=== PATIENT | male | born 1970 | race Caucasian/White ===

== ENCOUNTER 2017-08-08 03:37 | Emergency (ER) | payer OTHER, SELFPAY ==
[2017-08-08 03:38] VITALS: BP 139/94; PULSE 69; RESP 16; TEMP 36.7; O2SAT 97; BMI 31.8
[2017-08-08] MEDS: Naproxen 500 MG Tablet PO (03:58)
--- NOTE | 2017-08-08 04:01 | RAD_ITS ---
STUDY: X-RAY - PELVIS REASON FOR EXAM: Male, 46 years old. Pain after fall. TECHNIQUE: One view of the pelvis was obtained. COMPARISON: CT abdomen and pelvis March 13, 2016. FINDINGS: There is a non-specific bowel gas pattern. Normal visualized soft tissue structures. Normal bilateral iliac wings, sacroiliac joints and visualized sacrum. Normal visualized bilateral superior and inferior pubic rami. Normal pubic symphysis. Normal ischial tuberosities. Normal visualized right femoral head. Normal right acetabulum. Normal right hip joint. Normal visualized left femoral head. Normal left acetabulum. Normal left hip joint. RAD/Pelvis 1 or 2 Views IMPRESSION: Normal x-ray examination of the pelvis. Electronically Signed: Rock Etienne MD at 4:27 EST , Service support ,
--- NOTE | 2017-08-08 04:48 | ED.DCSUM_ITS ---
- ER Visit Summary Date of Service: 08/08/17 Chief Complaint: Fall History of Present Illness: The patient is a 46 M who was unloading a truck at [facility] when he stepped off of a lift with his left leg. He states his legs were stretched approximately 3 feet apart at an odd angle. He is complaining of pain to the left lower back. Physical Examination: Vital signs are unremarkable. Patient sitting upright in bed no acute distress. Heart is regular rate and rhythm. Lungs are clear. Abdomen is soft nontender. Back examination reveals no midline thoracic or lumbar tenderness. He does have reproduced with tenderness in the left lower lumbar paraspinals and over the left SI joint. Neuro exam reveals good strength and sensation throughout. He has strong and equal distal pulses. Test Results: Pelvis x-ray is unremarkable. Emergency Department Course and Treatment: Patient is given Naprosyn here for pain. He is given a prescription for the same. He will follow-up with [facility]. Treatment Plan: [] Disposition: Discharge Impression: Left lumbar paraspinal strain This note was generated with [employer] dictation software. It may contain incorrect words, spelling, and punctuation that were not noted in review of the chart prior to signing ED Disposition - Plan for ED Patient: Disposition: Home or Assisted Living Chief Complaint: Fall Instructions: ED Sprain Strain Lumbar Prescriptions: Naproxen [Naprosyn] 500 mg PO BID PRN #20 tablet Referrals: [facility] [GROUP OF PHYSICIANS] - 2 Days
--- NOTE | 2017-08-08 04:49 | DCINST.ED_ITS ---
ED Disposition - Plan for ED Patient: Disposition: Home or Assisted Living Chief Complaint: Fall Instructions: ED Sprain Strain Lumbar Prescriptions: Naproxen [Naprosyn] 500 mg PO BID PRN #20 tablet Referrals: Corporate,[facility], [place] [GROUP OF PHYSICIANS] - 2 Days
[2017-08-08 05:09] VITALS: BP 138/81; PULSE 73; RESP 16; O2SAT 97
== END 2017-08-08 05:10 | disposition home or self-care (01) ==
PROVIDERS: Emergency Provider Emergency Medicine; Family Provider Family Medicine; PCP Family Medicine
DX: S39.012A Strain of muscle, fascia and tendon of lower back, initial encounter (principal); W17.89XA Other fall from one level to another, initial encounter; Y93.89 Activity, other specified; Y92.812 Truck as the place of occurrence of the external cause; Y99.0 Civilian activity done for income or pay; M54.9 Dorsalgia, unspecified; G89.29 Other chronic pain; G47.33 Obstructive sleep apnea (adult) (pediatric); Z87.442 Personal history of urinary calculi
CPT/HCPCS: 72170; 99283

== ENCOUNTER 2018-02-17 02:39 | Emergency (ER) | payer OTHER, SELFPAY ==
[2018-02-17 02:40] VITALS: BP 139/80; PULSE 67; RESP 18; TEMP 36.8; O2SAT 97; BMI 35.4
--- NOTE | 2018-02-17 02:53 | ED.DCSUM_ITS ---
- ER Visit Summary Date of Service: 02/17/18 Chief Complaint: Neck pain History of Present Illness: The patient is a 47 M presenting with neck pain. Patient was at work. He states a box fell from behind him and hit the back of his head and neck. He had no loss of consciousness. No vomiting. He complains of neck pain. This occurred 1 hour prior to arrival. No other injuries. Physical Examination: Vitals are stable. Patient is afebrile. Alert no acute distress. HEENT exam is unremarkable. Neck is supple. left paraspinal cervical muscle tenderness Lungs are clear and equal bilaterally. Heart is regular rate and rhythm Extremities are unremarkable. Skin is warm and dry. No focal neurologic deficit. Remainder of exam is unremarkable. Emergency Department Course and Treatment: Cervical spine x-ray shows no acute fracture. Patient is advised to use NSAIDs for pain. Advised to follow-up with [facility]. Advised return to ED for worsening complaints. Disposition: Discharge home Impression: Neck strain This note was generated with [employer] dictation software. It may contain incorrect words, spelling, and punctuation that were not noted in review of the chart prior to signing ED Disposition - Plan for ED Patient: Chief Complaint: Other, Pain/Inj Referrals: Care Physician,No Primary [Primary Care Provider] -
--- NOTE | 2018-02-17 05:57 | ED.DEP ---
ED Disposition - Plan for ED Patient: Chief Complaint: Other, Pain/Inj Instructions: ED Neck Back Pain General Referrals: Care Physician,No Primary [Primary Care Provider] - Corporate,[facility] [GROUP OF PHYSICIANS] -
[2018-02-17 06:31] VITALS: RESP 16
== END 2018-02-17 06:31 | disposition home or self-care (01) ==
PROVIDERS: Emergency Provider Emergency Medicine; Family Provider Family Medicine
DX: S16.1XXA Strain of muscle, fascia and tendon at neck level, initial encounter (principal); W20.8XXA Other cause of strike by thrown, projected or falling object, initial encounter; Y93.9 Activity, unspecified; Y92.89 Other specified places as the place of occurrence of the external cause; Y99.0 Civilian activity done for income or pay
CPT/HCPCS: 72040; 99282

== ENCOUNTER 2018-05-16 15:15 | Emergency (ER) | payer BC, SELFPAY ==
[2018-05-16 15:16] VITALS: BP 140/77; PULSE 79; RESP 17; TEMP 36.7; O2SAT 96; BMI 32.5
[2018-05-16 15:21] VITALS: BP 135/78; PULSE 80; RESP 14; O2SAT 98
--- NOTE | 2018-05-16 15:31 | ED.DCSUM_ITS ---
- ER Visit Summary Date of Service: 05/16/18 Chief Complaint: Neck swelling History of Present Illness: The patient is a 47 M with upper respiratory symptoms for the past 2 weeks about 4 5 days developed a lump under his tongue. It is painful. He did have subjective fevers. No chest pain shortness of lianna ath. He has a dry cough. No posterior neck pain no headache. No vision changes. Pain is mild to moderate not associated with dysphasia or odynophagia Physical Examination: Not appear in acute distress. Moist mucous membranes, no obvious facial deformity. There is slight postnasal drip and upper airway congestion. Submandibular gland is enlarged swollen and painful. No C-spine tenderness supple neck. No lymphadenopathy Regular rate and rhythm without any obvious murmurs Clear lungs bilaterally speaking in full sentences without any obvious respiratory distress Abdomen soft and nontender no guarding or rebound Moves all extremities without any difficulty or pain. Skin does not show any obvious rashes or lesions, no trauma. Alert oriented ?3 with no gross focal deficit Emergency Department Course and Treatment: Patient had submandibular gland sialadenitis. I will refer to ENT as well as treat with antibiotics. I instructed him on the use of tart candy. Disposition: Discharge stable condition Impression: Sialoadenitis This note was generated with [employer] dictation software. It may contain incorrect words, spelling, and punctuation that were not noted in review of the chart prior to signing ED Disposition - Plan for ED Patient: Disposition: Home or Assisted Living Chief Complaint: Other, Pain/Inj Instructions: ED Submandibular Gland Infec Prescriptions: Amoxicillin/Potassium Clav [Augmentin 875-125 Tablet] 1 ea PO BID #20 tab Referrals: Care Physician,No Primary [Primary Care Provider] -
[2018-05-16 15:40] VITALS: BP 128/75; PULSE 85; RESP 14; O2SAT 98
== END 2018-05-16 15:42 | disposition home or self-care (01) ==
PROVIDERS: Emergency Provider Emergency Medicine
DX: K11.20 Sialoadenitis, unspecified (principal)
CPT/HCPCS: 99282

== ENCOUNTER 2019-09-25 09:22 | Emergency (ER) | payer OTHER, BC, SELFPAY ==
[2019-09-25 09:22] VITALS: BP 150/70; PULSE 75; RESP 18; TEMP 36.8; O2SAT 96; BMI 37.8
[2019-09-25] MEDS: Diphth,Pertuss(Acell),Tet Vac 0.5 ML Vial IM (09:47)
--- NOTE | 2019-09-25 10:01 | ED.DCSUM_ITS ---
History of Present Illness Informant: Patient Occurred: Today Mechanism/Context: Work Related Onset: Today Context: Sudden Onset Timing: Continuous Quality of Pain: Sharp Location: right index finger Current Severity: Severe Maximum Severity: Severe Worsened by: movement Relieved by: nothing Associated Symptoms: Negative for: Parasthesia, Weakness, Loss of Funtion Narrative: 49-year-old [id number] male presents to the emergency department with a laceration to his right index finger. It occurred at work just prior to arrival. He was not able to control the bleeding. He does not remember when his last tetanus immunization was. He states he was on a sharp piece of glass but there is no shattering of glass. No numbness tingling or weakness. He is not on blood thinners. He denies any other injuries. Tetanus Immunization: >10 years Prior similar symptoms: No Recent Illness/Hospitalization: No <Hasmukh Flores - Last Filed: 09/25/19 10:01> <Latrice Mckeon - Last Filed: 09/25/19 10:15> Chief Complaint: Laceration Past Medical History Prior records reviewed: Yes Past Medical History: - - Depression and anxiety Surgical History: no surgical history Lives: Alone Smoking Status: Never smoker Alcohol: Occasional Drugs: None <Hasmukh Flores - Last Filed: 09/25/19 10:01> <Latrice Mckeon - Last Filed: 09/25/19 10:15> - Allergies and Home Meds Allergies/Adverse Reactions: Allergies No Known Allergies Allergy (Verified 09/25/19 09:25) [facility]YS[facility]] - As soon as possible Review of Systems All systems negative except as indicated General: Denies: Chills, Fever, Malaise Eyes: Denies: Visual changes - bilaterally, Blurred Vision - bilaterally, Dipl opia ENT: Denies: Rhinorrhea, Sore throat Cardiovascular: Denies: Chest pain, Palpitations Respiratory: Denies: Dyspnea, Cough Gastrointestinal: Denies: Abdominal pain, Nausea, Vomiting Genitourinary: Denies: Dysuria, Hematuria, Frequency Musculoskeletal: Reports: Extremity Pain. Denies: Myalgias, Arthralgias, Swelling Skin: Reports: Wounds. Denies: Rash, Abscess, Abrasions Neurological: Denies: Headache, Weakness, Parasthesia, Numbness <Juan Floresony - Last Filed: 09/25/19 10:01> Physical Exam Vital Signs/Narrative: Vital Signs Temp Pulse Resp BP Pulse Ox 09/25/19 09:22 98.3 F 75 18 150/70 H 96 Inital Vital Signs reviewed: Yes Right Finger: - - 4 cm laceration finger pad right index finger with mild active bleeding. It is linear. It is superficial. It is not through and through. There is no nail injury. He is able to fully flex and extend actively at the MCP, PIP and DIP joints. He has normal capillary refill and sensation. There is no bony tenderness. General: Well nourished, Well developed Head: Normocephalic, Atraumatic Eyes: Perrl, EOMI ENT: No Trauma, Moist Mucous Membranes Neck: Nontender, Full ROM Cardiovascular: Regular rate, Regular rhythm Respiratory: No distress, CTA bilaterally, Chest nontender Abdomen: Soft, Nontender, Nondistended, Normal bowel sounds, No masses Back: Nontender Skin: Normal color, No rash, Trauma Neurological: Alert, Oriented x3 Psychological: Normal affect, Normal Mood <Hasmukh Flores - Last Filed: 09/25/19 10:01> Vital Signs/Narrative: Vital Signs Temp Pulse Resp BP Pulse Ox 09/25/19 09:22 98.3 F 75 18 150/70 H 96 <Latrice Mckeon - Last Filed: 09/25/19 10:15> Diagnostic/Tx/Re-eval - Medical Decision Making Patient's tetanus was updated. Under sterile conditions with Betadine prep lidocaine was used for a digital block right second finger. Patient's laceration was thoroughly irrigated with sterile saline via pressure wash syringe approximately 60 cc. It was explored. There is no foreign body or any evidence of arterial bleeding tendon or ligament injury. It was then approximated with simple sutures Ethilon #6?0. A total of 8 were placed. Patient tolerated the procedure well. Patient will be placed in a sterile dressing with antibiotic ointment. He will be given work restrictions as this was a work-related injury and a Worker's Compensation form was completed. He was given instructions on proper wound care and he was given signs of infection to monitor for. He was advised to follow-up for removal in 7 to 10 days with Worker's Comp. <Hasmukh Flores - Last Filed: 09/25/19 10:01> - Medical Decision Making Seen with Susana agree history patient has right index laceration occurred at work on exam he has about a 2 cm laceration to the pad of his right index finger neurovascular function is intact see the ED chart for full details <Latrice Mckeon - Last Filed: 09/25/19 10:15> Procedures - Lacerations No standard instances Length: 1.57 in Depth: Skin Shape: Linear Prep: Sterile Conditions, Betadine Laceration Repair: Lidocaine, Nerve block, Sutures, Wound explored Irrigated (ml): 60 Number of Sutures/Primrose: 8 Suture Information: Ethilon, Simple, 6-0 <Hasmukh Flores - Last Filed: 09/25/19 10:01> ED Disposition <Hasmukh Flores - Last Filed: 09/25/19 10:01> <Latrice Mckeon - Last Filed: 09/25/19 10:15> - Plan for ED Patient: Disposition: Home or Assisted Living Diagnosis: Laceration of right index finger w/o foreign body w/o damage to nail, Tetanus toxoid vaccination administered at current visit Instructions: LACERATION, Extrem (Suture, Staple or Tape) Referrals: [facility] [GROUP OF PHYSICIANS] - As soon as possible
[2019-09-25 10:59] VITALS: RESP 16
== END 2019-09-25 11:00 | disposition home or self-care (01) ==
PROVIDERS: Emergency Provider Physician Assistant Medical
DX: S61.210A Laceration without foreign body of right index finger without damage to nail, initial encounter (principal); W25.XXXA Contact with sharp glass, initial encounter; Y93.9 Activity, unspecified; Y92.9 Unspecified place or not applicable; Y99.0 Civilian activity done for income or pay
CPT/HCPCS: 12002; 90471; 90715; 99282

== ENCOUNTER 2020-07-18 11:25 | Emergency (ER) | payer OTHER, BC, SELFPAY ==
[2019-10-05 10:09] VITALS: BMI 37.8
[2020-07-18 11:26] VITALS: BP 148/82; PULSE 52; RESP 18; TEMP 36.6; O2SAT 98; BMI 33.9
--- NOTE | 2020-07-18 11:29 | ED.RN ---
sarah serna.. assistant casino shift manager [phone]
--- NOTE | 2020-07-18 11:37 | CT_ITS ---
STUDY: CT BRAIN WITHOUT CONTRAST REASON FOR EXAM: Male, 49 years old. HEAD INJURY, HIT HEAD YESTERDAY, NO LOC, DIZZY, LIGHTHEADED RADIATION DOSAGE (If Supplied By Facility): CTDIvol = ( 44.99 ) mGy, DLP = ( 846.73 ) mGycm TECHNIQUE: Transaxial CT imaging of the brain was performed without administration of intravenous contrast material. Individualized dose optimization techniques were used for this CT. COMPARISON: Comparison is made with prior study dated 11/21/2012. FINDINGS: Normal soft tissue structures. Normal calvarium. Normal size ventricles and extra-axial spaces for the patient''s age. Normal white matter tracts of the cerebral hemispheres. Normal basal ganglia and thalami. Normal brainstem. Normal cerebellum. There is no intracranial hemorrhage. There are no findings of an acute ischemic infarction. Mucosal thickening of the left maxillary sinus. CT/Brain/Head without Contrast IMPRESSION: No acute abnormality is seen. Electronically Signed: Romain Morel, at 12:26 EST , Service support ,
--- NOTE | 2020-07-18 11:38 | ED.DCSUM_ITS ---
- ER Visit Summary Date of Service: 07/18/20 Chief Complaint: [Head injury] History of Present Illness: The patient is a 49 M [presents to the emergency department today after sustaining a head injury while at work yesterday around 3 PM. Patient states that he bent over and hit a bolt was attached to a beam with his head. No loss of consciousness. Patient unsure of his last tetanus shot. Patient initially felt okay but today started having episodes of dizziness and nausea and just overall not feeling well. Planes of a mild headache. Patient denies neck pain.] Patient not currently anticoagulated. He has history of obstructive sleep apnea, vertigo, and seizure disorder. Physical Examination: [HEENT-PERRLA, EOMI. Cranial nerves II through XII grossly intact. TMs clear. Mucous membranes moist. No adenopathy. Patient has a healing 1 cm laceration over the frontal scalp that is well approximated without signs of infection. No bony depressions noted. No hemotympanum. Cardiovascular-regular rate and rhythm without murmur or ectopy Lungs-clear to auscultation, chest wall stable without crepitus or subcu emphysema Abdomen-normoactive bowel sounds, soft, nontender, no rebound or rigidity, no peritoneal signs. Neuro aayf-dyuczq-yqtv and heel sanchez testing within normal limits, negative Romberg, negative for drift, fundi benign Extremities-intact ?4, normal range of motion, normal pulses, atraumatic] Test Results: [CT scan of the brain without contrast obtained and was normal] Emergency Department Course and Treatment: [] Treatment Plan: [Patient vies to push fluids and use Tylenol for discomfort. Patient will be given off work for 2 days. Patient to follow-up with [facility] in 3 to 5 days.] Disposition: [Discharged home in stable condition] Impression: [Post head injury/concussion Scalp laceration-no repair necessary-1 cm] This note was generated with [employer] dictation software. It may contain incorrect words, spelling, and punctuation that were not noted in review of the chart prior to signing ED Disposition - Plan for ED Patient: Referrals: Care Physician,No Primary [Primary Care Provider] -
--- NOTE | 2020-07-18 12:35 | CM.ED ---
Social Work Consult: No PCP Met with patient in room. Introduced self and social science research assistant role. Patient agreeable to speak with this social science research assistant. Patient confirms to not have a PCP. Patient open to this social science research assistant providing patient with list of PCP's in the area. Patient has a commercial insurance. Patient states thanks, I need to get one set-up. This social science research assistant highlighting the value of having a PCP in the community. Patient denies any community needs or concerns currently. Patient denies any transportation issues/concerns. Micaela Pandya MSW, LAQUITA
--- NOTE | 2020-07-18 12:51 | ED.DEP ---
ED Disposition - Plan for ED Patient: Instructions: ED Concussion Referrals: Care Physician,No Primary [Primary Care Provider] - [facility] [GROUP OF PHYSICIANS] - 3-5 Days
[2020-07-18 13:06] VITALS: BP 129/74; PULSE 64; RESP 15; O2SAT 98
--- NOTE | 2020-07-18 13:07 | ED.RN ---
PT LEFT PRIOR TO RECEIVING HIS TETANUS SHOT.
== END 2020-07-18 13:08 | disposition home or self-care (01) ==
LOC: ED 11:57
PROVIDERS: Emergency Provider Emergency Medicine
DX: S06.0X0A Concussion without loss of consciousness, initial encounter (principal); S01.01XA Laceration without foreign body of scalp, initial encounter; W22.8XXA Striking against or struck by other objects, initial encounter; Y93.89 Activity, other specified; Y92.9 Unspecified place or not applicable; Y99.0 Civilian activity done for income or pay
CPT/HCPCS: 70450; 99282

== ENCOUNTER 2023-05-04 19:01 | Emergency (ER) | payer SELFPAY ==
[2023-05-04 19:02] VITALS: BP 188/100; PULSE 69; RESP 16; TEMP 36.1; O2SAT 98; BMI 37.7
[2023-05-04 19:23] LABS: Bacteria 0 SEEN /hpf (None Seen); Mucous, Urine 0 SEEN /hpf (<or=2+)
[2023-05-04 19:24] LABS: Absolute Lymphocyte Count 2.21 X10^3/uL (0.83-4.51); Absolute Neutrophil Count 5.2 X10^3/uL (2.0-7.7); Basophil# 0.09 X10^3/uL; Basophil% 1.1 % (0-1); Eosinophil# 0.17 X10^3/uL; Hematocrit 48.9 % (40-54); Hemoglobin 16.4 g/dL (13.0-16.5); Lymphocyte # 2.21 X10^3/ul (0.83-4.51); Lymphocyte % 26.1 % (19-41); Mean Corp Hgb Conc 33.5 g/dL (32-36); Mean Corpuscular Hgb 31.7 pg (27.0-32.0); Mean Corpuscular Volume 94.6 fL (80-94); Mean Platelet Vol. 10.4 fl (6.2-12.0); Monocyte# 0.74 X10^3/uL; Monocyte% 8.7 % (0-10); NRBC Flagged by Analyzer 0 % (0-5); Neutrophil # 5.24 X10^3/uL (2.7-7.7); Neutrophil % 61.7 % (47-70); Platelet Count 239 K/mm3 (150-450); RBC Distribution Width CV 12.6 % (11.6-14.6); RBC Distribution Width SD 44.1 fl (35.1-43.9); Red Blood Count 5.17 M/mm3 (4.6-6.2); White Blood Count 8.5 K/mm3 (4.4-11.0)
[2023-05-04 19:25] LABS: Color, Urine Yellow (Yellow); Glucose, Dipstick Normal (Normal); Ketone-Dipstick 5 mg/dl (Negative); Leukocyte Esterase-Dipstick 25 /ul (Negative); Nitrite-Dipstick Negative (Negative); Occult Blood-Urine 50 /ul (Negative); Protein-Dipstick 30 mg/dl (Negative); Urine Bilirubin Dipstick Negative (Negative); Urine Clarity Clear (Clear); Urine Urobilinogen Normal (Normal)
[2023-05-04 19:33] LABS: Red Blood Cells-Urine 0-5 SEEN /hpf (0-5); Squamous Epithelial Cells - UA 0-5 SEEN /hpf (0-5); White Blood Cells 0-5 SEEN /hpf (0-5)
[2023-05-04 19:42] LABS: ALB/GLOB Ratio 0.8 RATIO (0.9-2.4); AST(SGOT) 31 U/L (15-37); Alanine Aminotransfer ALT/SGPT 71 U/L (16-61); Albumin, Serum 3.7 g/dL (3.2-5.0); Alkaline Phosphatase 96 U/L (45-117); Anion Gap 6 (5-15); BUN 16 mg/dL (7-18); Calcium,Total 9.2 mg/dL (8.5-10.1); Chloride 107 mmol/L (98-107); Creatinine, Serum 1.33 mg/dL (0.70-1.30); EST Glomerular Filtration Rate 60 mL/min (>60); Est Glom Filt Rate - Afr Amer 72 mL/min (>60); Estimated Creatinine Clearance 71.31 ml/min; Globulin 4.4 g/dL (2.2-4.2); Glucose 132 mg/dL (74-106); Potassium 3.8 mmol/L (3.5-5.1); Protein, Total 8.1 g/dL (6.4-8.2); Sodium Level 138 mmol/L (136-145)
--- NOTE | 2023-05-04 21:30 | CT_ITS ---
EXAM: CT ABDOMEN AND PELVIS WITHOUT INTRAVENOUS CONTRAST CLINICAL INDICATION: left flank pain. Stone hx TECHNIQUE: Helically acquired images were obtained of the abdomen and pelvis without intravenous contrast. This CT exam was performed using one or more of the following dose reduction techniques: automated exposure control, adjustment of the mA and/or kV according to patient size, and/or use of iterative reconstruction technique. RADIATION DOSE: CTDIvol = 23.48 mGy, DLP = 1343.25 mGy-cm. COMPARISON: March 13 2016 enhanced exam. FINDINGS: LOWER THORAX: At least mild calcification in left coronary artery, not fully included. Normal heart size. Lung bases are clear. No significant pericardial effusion. ABDOMEN: LIVER: Unremarkable. Homogeneous. GALLBLADDER AND BILE DUCTS: Small hyperdense layer of presumed tiny stones in the gallbladder, the gallbladder is mildly underdistended. No intra- or extrahepatic biliary ductal dilation. PANCREAS: Unremarkable. No focal cystic mass. SPLEEN: Unremarkable. Normal size without focal cystic or solid mass. ADRENALS: Unremarkable. No nodules. KIDNEYS AND URETERS: Mild left hydroureteronephrosis to the level of a 4.7 mm x 4 mm x 5 mm stone in the left UVJ, expected to pass shortly. Additional tiny solitary 2 mm stone in the left kidney. Mid left ureter 7 mm, left renal pelvis 1.2 cm AP. Slight left perinephric soft tissue stranding, no significant perinephric fluid. Normal renal size and position. STOMACH AND BOWEL: Collapse of much of the mid to distal colon, this is a limited exam for screening. No stomach or bowel distention. No focal inflammatory change. PELVIS: APPENDIX: Normal appendix is seen on sagittal images. BLADDER: See below. REPRODUCTIVE: Prostatomegaly, at least 6.7 cm x 5.2 cm x 5.3 cm with impression on the bladder base. ABDOMEN and PELVIS: INTRAPERITONEAL SPACE: Unremarkable. No ascites or other fluid collection. No free air. BONES/JOINTS: Vacuum disc and spondylosis with disc space narrowing at L4-5 and milder changes at L3-4 and L5-S1. No evidence of a significant degree of spinal canal stenosis but at least mild neural foraminal stenosis at multiple levels. No suspicious lytic or blastic abnormality. SOFT TISSUES: Small fat-containing umbilical hernia. VASCULATURE: See above. LYMPH NODES: Unremarkable. No enlarged lymph nodes. CT/Abdomen/Pelvis without Cont IMPRESSION: 1. Mild left hydroureteronephrosis to the level of a stone in the left UVJ. 2. Left nephrolithiasis. 3. Cholelithiasis. No evidence of acute cholecystitis. 4. Prostatomegaly. 5. Collapse of much of the colon, this is a very limited exam for colonic screening for early neoplasm. 6. Degenerative spine changes. Small fat-containing umbilical hernia. 7. At least mild coronary artery calcification. Heart is not fully included. Electronically Signed: Rossy Schmitz MD at 23:48 EDT ,
--- NOTE | 2023-05-04 21:39 | EDS_ITS ---
HPI HPI - GI History of Present Illness Chief Complaint: Abd Pain Detail of Chief Complaint: Left flank pain around 6 PM. History of kidney stones. Informant: patient and family Abdominal Pain/Flank Pain Onset: Today and Hours Context: Sudden Onset Timing: Continuous Location: Left Flank Current Severity: Moderate Maximum Severity: Moderate Nausea/Vomiting/Emesis GI Symptom: Positive for Nausea and Vomiting Onset: Today Severity: Mild Diarrhea/Melena/Hematochezia GI Symptom: Negative for Diarrhea Associated Symptoms Associated Symptoms: Negative for Dysuria, Frequency, Hematuria or Urgency Narrative Narrative: 52-year-old male history of kidney stone presented left flank pain today rating to his left groin. Thinks it is a kidney stone. Denies dysuria hematuria. No fever. With the pain he had nausea and vomiting. He is always passed the stones. He is never needed a stent or surgery. Prior similar symptoms: Yes Recent Illness/Hospitalization: No PFSH PFSH Medical History Weight loss Home Medications NK 09/25/19 [History Last Taken Unknown] Allergy/AdvReac Type Severity Reaction Status Date / Time No Known Allergies Allergy Verified 05/04/23 19:02 Social History Smoking Status: Former smoker alcohol intake: current alcohol intake frequency: a few times a month Alcohol type: beer and wine ROS ROS ED ROS Narrative Left flank pain. Nausea vomiting. Review of Systems ROS Unobtainable: Denies due to encephalopathy Constitutional Constitutional ED: Denies chills or fever(s) ENT ENT ED: Denies ear pain Cardiovascular Cardiovascular: Denies chest pain Respiratory/Chest Respiratory/Chest: Denies cough or dyspnea Gastrointestinal Gastrointestinal: Reports abdominal pain, nausea and vomiting; Denies constipation, diarrhea or melena Genitourinary Genitourinary ED: Denies dysuria, hematuria or urinary frequency Musculoskeletal Musculoskeletal: Denies arthralgias Integumentary Denies abscess or Abrasions Neurologic Neurologic: Denies headache(s) Psychiatric Psychiatric: Denies anxiety Endocrine Endocrinology: Denies polydipsia Hematologic/Lymphatic Hematologic/Lymphatic: Denies easy bleeding or easy bruising Allergic/Immunologic Allergic/Immunologic ED: Denies mouth swelling EXAM Physical Exam Narrative Exam Narrative: 50-year-old male complain left flank pain. Vital signs stable afebrile. HEENT exam unremarkable. Lungs clear. Heart regular rhythm rate about 70 no murmur. Abdomen soft nondistended normal bowel sounds no peritoneal signs. He describes the pain at the left flank. It is really not specifically reproducible. There is no hernia or mass or distention. No pulsatile mass. Back nontender. Moving all 4 extremities. Neurologically is awake and alert. Const Vital Signs: 05/04/23 19:02 Temperature 96.9 F L Temperature Source Temporal Pulse Rate 69 Respiratory Rate 16 Blood Pressure 188/100 H Blood Pressure Mean 129 Pulse Ox 98 Oxygen Delivery Method Room Air Positive well nourished and well developed; Negative for cachectic, contractures or unkempt General Appearance ED: well developed and NAD; Negative for unkempt, cachectic, contractures or pallor Nutritional Appearance: Negative for cachectic HEENT Reports moist mucous membranes normocephalic and atraumatic; Negative for trauma or tenderness Eyes PERRL and EOMs intact bilaterally General Eye ED: Negative for pale conjunctiva or scleral icterus Neck no lymphadenopathy, supple and no JVD General: Negative for tenderness Carotids: Negative for other Lymph Lymphatic: Negative for other Resp normal respiratory effort and clear to auscultation bilaterally Effort and Inspection: Negative for respiratory distress Auscultation: Negative for rales, rhonchi or wheezes Cardio regular rate, regular rhythm, S1 normal heart sound, S2 normal heart sound and no murmurs Rate: Negative for bradycardia or tachycardic Rhythm: Negative for abnormal rhythm GI non-tender, non-distended and no masses Inspection: Negative for abdominal distention Auscultation: normoactive bowel sounds Palpation: soft; Negative for tender or guarding Back/Spine Negative for no CVA tenderness General Back: Negative for CVA tenderness Cervical Spine: Negative for cervical spine tenderness Thoracic Spine / Upper Back: Negative for thoracic spinal tenderness Lumbar Spine / Lower Back: Negative for lumbar spinal tenderness Coccyx: Negative for other Extremity full ROM General Extremety ED: Negative for edema or tenderness General Extremity: Negative for edema Neuro CN's II-XII intact bilaterally and moves all extremities Sensorium / Orientation: alert, oriented to person, oriented to place and oriented to time; Negative for orientation impaired, confused or lethargic Motor Exam: strength 5/5 throughout Psych mental status grossly normal and thought process normal Appearance: Negative for unkempt Attitude: No agitated Mood & Affect: Negative for depressed, anxious or tearful Skin no wounds General Skin Exam: Negative for jaundice or pallor Lesions: no lesions Rashes: no rashes Trauma: Negative for abrasion Nails: Negative for discolored MDM MDM MDM Narrative Medical decision making narrative: 52-year-old male with left flank pain with a history of kidney stones. Screening labs are unremarkable. Awaiting CAT scan results. He is being treated with Dilaudid for pain Zofran for nausea and Toradol. History & Record Review Discussion w/independent historian: Patient and Family Additional record(s) reviewed:: Prior inpatient record, Prior outpatient record, Prior ED visit and Prior labs Lab Data Attestation: I reviewed the patient's lab results. Lab results narrative: CBC unremarkable. White count 8.5. H&H is 16 and 48. Platelets 239. Electrolytes unremarkable gap of 6 BUN and creatinine is 16 and 1.3. Glucose 132. Liver enzymes are unremarkable. Urinalysis shows no nitrites nor any red or white cells nor bacteria. Labs: Laboratory Results - last 24 hr 05/04/23 05/04/23 19:10 19:15 WBC 8.5 RBC 5.17 Hgb 16.4 Hct 48.9 MCV 94.6 H MCH 31.7 MCHC 33.5 RDW Std Deviation 44.1 H RDW Coeff of Allison 12.6 Plt Count 239 MPV 10.4 Immature Gran % (Auto) 0.400 Neut % (Auto) 61.7 Lymph % (Auto) 26.1 [place] % (Auto) 8.7 Eos % (Auto) 2.0 Baso % (Auto) 1.1 H Absolute Neuts (auto) 5.2 Absolute Lymphs (auto) 2.21 Nucleated RBC % 0 Sodium 138 Potassium 3.8 Chloride 107 Carbon Dioxide 25.0 Anion Gap 6 BUN 16 Creatinine 1.33 H Estim Creat Clear Calc 71.31 Est GFR (MDRD) Af Amer 72 Est GFR (MDRD) Non-Af 60 BUN/Creatinine Ratio 12.0 Glucose 132 H Calcium 9.2 Total Bilirubin 0.50 AST 31 ALT 71 H Alkaline Phosphatase 96 Total Protein 8.1 Albumin 3.7 Globulin 4.4 H Albumin/Globulin Ratio 0.8 L Urine Color Yellow Urine Clarity Clear Urine pH 5.0 Ur Specific [place] 1.030 Urine Protein 30 H Urine Glucose (UA) Normal Urine Ketones 5 H Urine Occult Blood 50 H Urine Nitrite Negative Urine Bilirubin Negative Urine Urobilinogen Normal Ur Leukocyte Esterase 25 H Urine RBC 0-5 SEEN Urine WBC 0-5 SEEN Ur Squamous Epith Cells 0-5 SEEN Urine Bacteria 0 SEEN Urine Mucus 0 SEEN Discharge Plan Triage Chief Complaint: Abd Pain ED Provider: Juan Pablo Pollard Dx/Rx/DC Orders Prescriptions: No Action NK Primary Care Provider: Care Physician,No Primary Referrals: Care Physician,No Primary [Primary Care Provider] -
[2023-05-04 21:42] VITALS: BP 188/100; PULSE 69; RESP 16; TEMP 36.1; O2SAT 98
[2023-05-04] MEDS: HYDROmorphone 1 MG/ML Syringe IV (21:59)
[2023-05-04] MEDS: Ketorolac 30 MG/ML Syringe IV (21:59)
[2023-05-04] MEDS: Ondansetron 4 MG/2 ML Vial IV (21:59)
[2023-05-05 00:38] VITALS: BP 145/91
== END 2023-05-05 00:40 | disposition home or self-care (01) ==
PROVIDERS: Emergency Provider Emergency Medicine; Visit Provider Emergency Medicine
DX: R10.9 Unspecified abdominal pain (principal); R11.2 Nausea with vomiting, unspecified; Z87.891 Personal history of nicotine dependence; Z87.442 Personal history of urinary calculi
CPT/HCPCS: 74176; 80053; 81001; 85025; 96374; 96375; 99283; A4216; J2405

== ENCOUNTER 2023-08-03 17:58 | Emergency (ER) | payer BC, SELFPAY ==
[2023-08-03 18:00] VITALS: BP 175/97; PULSE 71; RESP 18; TEMP 36; O2SAT 98; BMI 37.0
--- NOTE | 2023-08-03 18:08 | EX.ED.DYSGE1 ---
HPI <BRIJESH Eaton - Last Filed: 08/03/23 19:39> History of Present Illness Chief Complaint: Shortness of Breath Narrative Narrative: 52-year-old male states over the last week he has had subjective fever and chills, body aches, congestion and productive cough, decreased appetite and occasional loose stools. Over the last couple days he is felt short of breath with the cough. He has untreated sleep apnea. He does not smoke or vape. He has no chest pain. His daughter was ill with similar symptoms. PFSH <BRIJESH Eaton - Last Filed: 08/03/23 19:39> [facility] Medical History (Updated 08/03/23 @ 19:13 by BRIJESH Eaton) Weight loss Home Medications multivitamin (Daily Multi-Vitamin tablet) 1 tab PO DAILY PRN well being 05/04/23 [History Last Taken Unknown] ketorolac 10 mg tablet 10 mg PO Q8H PRN pain #10 tabs 05/05/23 [Rx Last Taken Unknown] tamsulosin 0.4 mg capsule (Flomax) 0.4 mg PO DAILY #4 caps 05/05/23 [Rx Last Taken Unknown] Allergy/AdvReac Type Severity Reaction Status Date / Time No Known Allergies Allergy Verified 05/04/23 19:02 Social History Smoking Status: Never smoker alcohol intake: current alcohol intake frequency: a few times a month Alcohol type: beer and wine ROS <BRIJESH Eaton - Last Filed: 08/03/23 19:39> ROS ED ROS Narrative Constitutional: Positive for fever, chills, malaise. ENT: Positive for rhinorrhea. CVS: Negative for chest pain, syncope. Respiratory: Positive for shortness of breath, cough. GI: Positive for diarrhea. Negative for abdominal pain, nausea, vomiting, melena, hematochezia. Neuro: Negative for headache. EXAM <BRIJESH Eaton - Last Filed: 08/03/23 19:39> Physical Exam Narrative Exam Narrative: CONST: Patient sitting in no acute distress. EYES: Normal inspection. NECK: Normal inspection. RESP: No respiratory distress, CTAB. CVS: Regular rate and rhythm, no murmur, no gallop. SKIN: Color normal, no rash, warm, dry, intact. EXTREMITIES: Normal appearance, no pedal edema. NEURO: Oriented x4. PSYCH: Normal affect. Const Vital Signs: 08/03/23 18:00 08/03/23 18:13 08/03/23 18:14 Temperature 96.8 F L Temperature Source Temporal Pulse Rate 71 64 Respiratory Rate 18 18 Respiratory Effort Non-Labored Short of Breath Respiratory Pattern Blood Pressure 175/97 H 147/90 H Blood Pressure Mean 123 109 Pulse Ox 98 98 Oxygen Delivery Method Room Air Room Air Room Air 08/03/23 18:16 08/03/23 19:36 Temperature Temperature Source Pulse Rate 74 Respiratory Rate 18 Respiratory Effort Respiratory Pattern Normal Blood Pressure 145/69 H Blood Pressure Mean 94 Pulse Ox 95 Oxygen Delivery Method <Dr. Marlo Altamirano DO - Last Filed: 08/03/23 20:44> Physical Exam Const Vital Signs: 08/03/23 18:00 08/03/23 18:13 08/03/23 18:14 Temperature 96.8 F L Temperature Source Temporal Pulse Rate 71 64 Respiratory Rate 18 18 Respiratory Effort Non-Labored Short of Breath Respiratory Pattern Blood Pressure 175/97 H 147/90 H Blood Pressure Mean 123 109 Pulse Ox 98 98 Oxygen Delivery Method Room Air Room Air Room Air 08/03/23 18:16 08/03/23 19:36 Temperature Temperature Source Pulse Rate 74 Respiratory Rate 18 Respiratory Effort Respiratory Pattern Normal Blood Pressure 145/69 H Blood Pressure Mean 94 Pulse Ox 95 Oxygen Delivery Method [facility] <Natali Mistry PA - Last Filed: 08/03/23 19:39> [facility] Narrative Medical decision making narrative: Patient's family was ill and he has had 1 week of flulike symptoms with cough and feeling short of breath over the last few days. He appears well and nontoxic. He is hypertensive with otherwise stable vital signs. BP improved without intervention. He is 98% on room air and speaking in full sentences in no distress. Cardiopulmonary exam is within normal limits. Viral swab for COVID/influenza/RSV is negative. CXR shows no acute process. I suspect he has another viral illness/bronchitis. With normal O2 saturations and no chest pain he does not require further emergent workup. Return precautions were discussed and he was discharged in stable condition. Radiography Diagnostic Testing: Clinical Impression(s) from Imaging Studies Chest X-Ray 08/03/23 18:33 IMPRESSION: No acute cardiopulmonary disease. Electronically Signed: Landon Carrillo MD at 19:36 EST , ED attending interpretation of 2-view chest x-ray shows normal heart size, no acute infiltrate, edema, or effusion. <Dr. Marlo Altamirano, DO - Last Filed: 08/03/23 20:44> MDM Radiography Diagnostic Testing: Clinical Impression(s) from Imaging Studies Chest X-Ray 08/03/23 18:33 IMPRESSION: No acute cardiopulmonary disease. Electronically Signed: Landon Carrillo MD at 19:36 EST , Treatment and Re-Evaluation :: I have personally performed a face to face assessment of the patient and have reviewed the KELI Note. I performed a substantive portion of the visit including all aspects of the following. My espitia findings include: History: Patient presents with cough and congestion that has been getting progressively worse over the past week. Patient admits to some white and clear sputum production. Patient admits to some subjective fevers. Patient states he feels short of breath at times. Patient states he does have some pain in his chest with deep breathing. Patient admits to some nausea but denies any vomiting. Patient admits to some diarrhea. Patient states other family members have had similar symptoms. Exam: Vital signs are stable. Patient is afebrile. Patient is in no acute distress. Oral mucosa is pink and moist. Neck is supple. Trachea is midline. There is no JVD. Heart was regular rate and rhythm. Lungs are clear and equal bilaterally. There is good respiratory effort noted. Abdomen is soft. Bowel sounds are normal. There is no tenderness. Cranial nerves II through XII are intact. There are no focal motor or sensory deficits noted. Medical Decision Making: Differential diagnosis includes pneumonia, bronchitis, and viral upper respiratory infection. Chest x-ray will be obtained to assess for pneumonia. COVID-19, influenza, and RSV PCR will be obtained to assess for COVID-19, influenza, and RSV infections. PA and lateral chest x-ray was obtained. There are 2 views. On my independent interpretation, lung varma are clear. There is normal cardiac silhouette. Bony thorax is normal. There is no acute process noted. Radiologist also interpreted the x-ray and agrees. COVID-19 PCR was reviewed and was negative. Influenza PCR was reviewed and was negative for influenza A and influenza B. RSV PCR was reviewed and was negative. Patient was advised of his findings. Patient was instructed to drink plenty of fluids. Patient was instructed to follow-up with his primary care physician in 5 to 7 days. Patient understood and was agreeable with the plan. All questions were answered. Discharge Plan Triage Chief Complaint: Shortness of Breath Other Complaint: Cold Sx ED Midlevel Provider: Natali Mistry ED Provider: Marlo Altamirano Dx/Rx/DC Orders Clinical Impression: Acute viral syndrome Instructions: ED Viral Syndrome (Adult) Prescriptions: No Action multivitamin [Daily Multi-Vitamin] Tablet 1 tab PO DAILY PRN (Reason: well being) ketorolac 10 mg tablet 10 mg PO Q8H PRN (Reason: pain) Qty: 10 0RF tamsulosin [Flomax] 0.4 mg capsule 0.4 mg PO DAILY Qty: 4 0RF Primary Care Provider: Care Physician,No Primary Referrals: Care Physician,No Primary [Primary Care Provider] - Activity Restrictions/Additional Instructions: With your flulike symptoms I suspect you have a viral syndrome. Take [id number] cough medication as needed. If your shortness of breath worsens please return to the ER. Disposition Disposition: Home, Self Care Discharge Date/Time: 08/03/23 19:37
[2023-08-03 18:13] VITALS: BP 147/90; PULSE 64; RESP 18; O2SAT 98
[2023-08-03 18:14] VITALS: O2SAT 98
--- NOTE | 2023-08-03 18:33 | RAD_ITS ---
STUDY: X-RAY CHEST REASON FOR EXAM: Male, 52 years old. Cough TECHNIQUE: PA and lateral views of the chest. COMPARISON: None. FINDINGS: The lungs are clear and expanded. There is stable right upper lung granuloma. There is no demonstrated pleural abnormality. Normal size heart. Normal mediastinum and jose j. Normal visualized pulmonary arteries. Normal visualized aortic arch and descending thoracic aorta. Normal visualized thoracic spine. Normal visualized ribs, clavicles, and shoulders. There is no demonstrated abnormality of the visualized soft tissue structures of the upper abdomen. RAD/Chest PA and Lateral IMPRESSION: No acute cardiopulmonary disease. Electronically Signed: Landon Carrillo MD at 19:36 EST ,
[2023-08-03 19:36] VITALS: BP 145/69; PULSE 74; RESP 18; O2SAT 95
== END 2023-08-03 19:37 | disposition home or self-care (01) ==
PROVIDERS: Emergency Provider Emergency Medicine; Visit Provider Emergency Medicine
DX: B34.9 Viral infection, unspecified (principal); G47.30 Sleep apnea, unspecified
CPT/HCPCS: 71046; 87631; 99283; A4216

== ENCOUNTER 2025-05-28 21:43 | Emergency (ER) | payer BC, SELFPAY ==
[2025-05-28] VITALS (8 sets, daily range): BP systolic 134–149; BP diastolic 87–107; PULSE 53–59; RESP 10–19; TEMP 36.3; O2SAT 96–100; BMI 36.1
--- NOTE | 2025-05-28 21:55 | EDS_ITS ---
HPI History of Present Illness Chief Complaint: Chest Pain Informant: patient Onset/Context/Timing Onset: Today Activity at onset: sudden Timing: Continuous Quality: Positive for Sharp Location: Substernal and - (Back) Worsened By: Nothing Relieved By: Nothing Associated Symptoms: Positive for Nausea, Diaphoresis and Lightheadedness; Negative for Vomiting, Dyspnea, Cough, Fever, Acid Reflux or Palpitations Narrative Narrative: Patient presents with chest pain that began tonight. Patient states pain started on his back and radiated into his chest. Patient states it began approximately and 1/2 hours prior to arrival. Patient describes it as sharp. Patient states it is constant. Patient states nothing makes it better nothing makes it worse. Patient admits to some nausea but denies any vomiting. Patient admits to some diaphoresis and lightheadedness. Patient denies any shortness of breath or cough. Patient denies any fevers or chills. CVD Risk Factors: Negative for Hypertension, Diabetes, Hypercholesterolemia, Family History 1' </=55 or Smoking PE Risk Factors: Negative for Recent Travel/Surgery, Recent Immobilization, Prior DVT or PE, Cancer or OCP + Smoking + >/=35 PFSH [facility], [facility] Medical History (Updated 05/29/25 @ 00:[address] Marlo Altamirano, ) Weight loss Home Medications ?Medication ?Instructions ?Recorded ?Last Taken ?Type multivitamin (Daily Multi-Vitamin 1 tab PO DAILY PRN w ell being 05/04/23 Unknown History tablet) Allergy/AdvReac Type Severity Reaction Status Date / Time No Known Allergies Allergy Verified 05/28/25 21:53 Surgical History no surgical history no surgical history Social History Smoking Status: Never smoker alcohol intake: current alcohol intake frequency: a few times a month Alcohol type: beer and wine ROS ROS ED Constitutional Constitutional ED: Denies chills or fever(s) Eyes Eyes: Denies blurry vision or change in vision ENT ENT ED: Denies rhinorrhea or sore throat Cardiovascular Cardiovascular: Reports as per HPI and chest pain; Denies palpitations Respiratory/Chest Respiratory/Chest: Denies cough or dyspnea Gastrointestinal Gastrointestinal: Reports nausea; Denies vomiting Genitourinary Genitourinary ED: Denies dysuria or hematuria Musculoskeletal Musculoskeletal: Reports back pain; Denies neck pain Integumentary Denies abscess or rash Neurologic Neurologic: Denies headache(s) or weakness Allergic/Immunologic Allergic/Immunologic ED: Denies mouth swelling or urticaria EXAM Physical Exam Const Vital Signs: 05/28/25 21:44 05/28/25 21:56 05/28/25 22:00 Temperature 97.4 F L Temperature Source Oral Pulse Rate 53 L 53 L 53 L Respiratory Rate 16 17 17 Blood Pressure 134/107 H Blood Pressure Mean 116 Pulse Ox 100 99 100 Oxygen Delivery Method Room Air 05/28/25 22:02 05/28/25 22:17 05/28/25 22:20 Temperature Temperature Source Pulse Rate 59 L 55 L Respiratory Rate 19 H 16 Blood Pressure 146/87 H Blood Pressure Mean 103 Pulse Ox 96 100 100 Oxygen Delivery Method Room Air 05/28/25 22:30 05/28/25 23:00 Temperature Temperature Source Pulse Rate 55 L 53 L Respiratory Rate 10 L 12 Blood Pressure 146/94 H 149/90 H Blood Pressure Mean 111 109 Pulse Ox 100 100 Oxygen Delivery Method Room Air Positive well nourished and well developed General Appearance ED: well developed and NAD HEENT Reports moist mucous membranes Neck supple and no JVD Chest Wall inspection of chest normal and palpation of chest normal Resp normal respiratory effort and clear to auscultation bilaterally Cardio regular rate and regular rhythm GI soft to palpation, non-tender and non-distended Extremity normal to inspection General Extremety ED: Negative for edema or tenderness General Extremity: Negative for edema Neuro oriented x3, CN's II-XII intact bilaterally and no sensory deficits noted Sensorium / Orientation: awake and alert Motor Exam: strength 5/5 throughout Psych mental status grossly normal Heart Score History: Slightly/Non-Suspicious ECG: Normal Age: >45 - <65 years Risk Factors: No Risk Factors Troponin: </= Normal Limit Score: 1 MDM MDM MDM Narrative Medical decision making narrative: Differential diagnosis includes cardiac dysrhythmia, cardiac ischemia, pneumonia, bronchitis, electrolyte abnormality, viral illness, gastroesophageal reflux disease, and anxiety. EKG will be obtained to assess for cardiac dysrhythmia and cardiac ischemia. Chest x-ray will be obtained to assess for pneumonia or bronchitis. CBC will be obtained to assess for leukocytosis and anemia. Basic metabolic profile will be obtained to assess for electrolyte abnormality and renal function. High-sensitivity troponin will be obtained to assess for cardiac ischemia. 2-hour repeat high-sensitivity troponin will be obtained to assess for ongoing cardiac ischemia. History & Record Review Additional record(s) reviewed:: Prior ED visit and Prior labs Lab Data Attestation: I reviewed the patient's lab results. Lab results narrative: CBC was reviewed and was within normal limits. Basic metabolic profile was reviewed and was within normal limits. Initial high-sensitivity troponin was reviewed and was normal at 6. 2-hour repeat high-sensitivity troponin was r eviewed and was less than 6. Labs: Laboratory Results - last 24 hr 05/28/25 05/28/25 21:56 23:55 WBC 8.2 RBC 4.97 Hgb 15.5 Hct 47.3 MCV 95.2 H MCH 31.2 MCHC 32.8 RDW Std Deviation 45.0 H RDW Coeff of [place] 12.9 Plt Count 243 MPV 10.4 Immature Gran % (Auto) 0.500 Neut % (Auto) 62.3 Lymph % (Auto) 25.2 [place] % (Auto) 8.7 Eos % (Auto) 2.3 Baso % (Auto) 1.0 Absolute Neuts (auto) 5.1 Absolute Lymphs (auto) 2.07 Nucleated RBC % 0 Sodium 136 Potassium 3.9 Chloride 101 Carbon Dioxide 25.5 Anion Gap 10 BUN 16 Creatinine 1.14 Estim Creat Clear Calc 99.35 Est GFR (MDRD) Non-Af 76 BUN/Creatinine Ratio 13.9 Glucose 139 H Calcium 9.2 Troponin T High Sens 6 Troponin T Hi Sens 2 Hr < 6 Radiography Chest X-Ray - ED: 2 View, Read by ED Physician, Read by Radiologist and No Acute Disease Diagnostic Testing: Clinical Impression(s) from Imaging Studies Chest X-Ray 05/28/25 22:03 IMPRESSION: No focal consolidations. Reading Location: [facility] PA and lateral chest x-ray was obtained. There are 2 views. On my independent interpretation, lung varma are clear. There is normal cardiac silhouette. Bony thorax is normal. There is no acute process noted. Radiologist also interpreted the x-ray and agrees. EKG Initial EKG: Attestation: I personally reviewed and interpreted this EKG as follows: Interpretation: No Acute Injury Pattern and Sinus Bradycardia (52) Comments: EKG was obtained. On my independent interpretation, it showed a sinus bradycardia with a rate of 52. AL interval, QRS interval, and QTc intervals were all normal. [place] was normal. There are no acute ST or T wave changes. Prior EKG tracings: available for review Prior: Unchanged (01/08/2013) Treatment and Re-Evaluation :: Patient was given aspirin. Patient was given a dose of morphine. Patient was sleeping on reevaluation. Patient was advised of his findings. Patient has a HEART score of 1. Patient was advised that this is low risk for acute cardiac event. Patient was instructed to follow-up with his primary care physician in 5 to 7 days. Patient was instructed to return if worse in any way. Patient understood and was agreeable with the plan. All questions were answered. Discharge Plan Triage Chief Complaint: Chest Pain Other Complaint: Back ED Provider: Marlo Altamirano Dx/Rx/DC Orders Clinical Impression: Chest pain, Back pain, thoracic Instructions: ED Chest Pain, Uncertain Cause Prescriptions: No Action multivitamin [Daily Multi-Vitamin] Tablet 1 tab PO DAILY PRN (Reason: well being) Primary Care Provider: Care Physician,No Primary Referrals: Gopal Murillo MD [Med Staff - Physician Office Secretary, Family Practice] - 3-5 Days Care Physician,No Primary [Primary Care Provider, Medical] Print Language: Estonian Disposition Disposition: Home, Self Care
--- NOTE | 2025-05-28 22:02 | EKG12_ITS ---
Test Reason : CP Blood Pressure : */* mmHG Vent. Rate : 52 BPM Atrial Rate : 52 BPM P-R Int : 158 ms QRS Dur : 90 ms QT Int : 412 ms P-R-T Axes : 45 27 15 degrees QTcB Int : 383 ms Sinus bradycardia Otherwise normal ECG When compared with ECG of 08-Jan-2013 12:24, No significant change was found Confirmed by JOHNNY JOSHI, MARY ([id number]), editor in chief SOUMYA GOOD ([id number]) on 05/29/2025 1:25:49 PM Referred By: GENEVA Confirmed By: MARY TURNER MD
--- NOTE | 2025-05-28 22:03 | RAD_ITS ---
PROCEDURE: CHEST PA AND LATERAL 05/28/2025 REASON FOR EXAM: CHEST PAIN TECHNIQUE: Procedure Code: RADCXR Modality: DX Procedure: CHEST PA AND LATERAL COMPARISON: 08/03/23 FINDINGS: No focal consolidation. No pleural effusion or pneumothorax. Cardiac silhouette is within normal limits. No acute fractures. RAD/Chest PA and Lateral IMPRESSION: No focal consolidations. Reading Location: [facility]
[2025-05-28 22:19] LABS: Hematocrit 47.3 % (40-54); Hemoglobin 15.5 g/dL (13.0-16.5); Immature Granulocytes Count 0.040 X10^3/uL (0.0-0.0); Mean Corp Hgb Conc 32.8 g/dL (32-36); Mean Corpuscular Volume 95.2 fL (80-94); Mean Platelet Vol. 10.4 fl (6.2-12.0); NRBC Flagged by Analyzer 0 % (0-5); Platelet Count 243 K/mm3 (150-450); RBC Distribution Width CV 12.9 % (11.6-14.6); RBC Distribution Width SD 45.0 fl (35.1-43.9); Red Blood Count 4.97 M/mm3 (4.6-6.2); White Blood Count 8.2 K/mm3 (4.4-11.0)
[2025-05-28 22:29] LABS: Anion Gap 10 (5-15); BUN 16 mg/dL (4-19); BUN/Creat Ratio 13.9 RATIO (10-20); Calcium,Total 9.2 mg/dL (7.6-11.0); Carbon Dioxide 25.5 mmol/L (21.0-32.0); Chloride 101 mmol/L (98-108); Estimated Creatinine Clearance 99.35 ml/min (50-250); Glucose 139 mg/dL (70-99); Potassium 3.9 mmol/L (3.3-5.1); Troponin T High Sensitivity 6 ng/L (<=22)
--- NOTE | 2025-05-28 23:15 | ED.RN ---
Addendum entered by Brittaney Gunter 05/28/25 23:37: some t wave elevation,not st with occassional pvc. Original Note: 2300 walked in to pt's room and found pt with his monitor off,grabbing his chest and c/o severe chest pain. Placed on equipment monitor phototypesetting and found pt to be sb with st elevation. made aware.order to give pain med.
--- OUTSIDE RECORDS SUMMARY | 2025-05-29 00:12 | XMS RPT_ITS | CCD ---
Author Organization [facility] Care Team Providers Care Foam Charger Name Role Phone Connor Todd Attending Unavailable Care Physician, No Primary Primary Care Unava ilable Care Physician, No Primary Referring Juan Pablo An Attending Unavailable Care Physician, No Primary Primary Care Unava ilable Care Physician, No Primary Primary Care Unava ilable Marlo Altamirano Attending Unavailable Medications Current Medications Medication Drug Class(es) Dates Sig (Normalized) Sig (Original) ketorolac tromethamine 10 mg oral tablet (2 sources) Nonsteroidal Anti-inflammatory Drug, Cyclooxygenase Inhibitor Start: 05-05-2023 take 10 mg by mouth every eight hours Ketorolac Active 10 MG PO Q8H May 04, 2023 11:00pm Multivitamin (Daily Multi-Vitamin) tablet (2 sources) Start: 05-04-2023 take 1 tablet by mouth once daily Multivitamin (Daily Multi-Vitamin) tablet Active 1 TABLET PO DAILY May 03, 2023 11:00pm Start: 05-04-2023 take 1 tablet by nikolas th once daily Multivitamin (Daily Multi-Vitamin) tablet Active 1 TABLET PO DAILY May 04, 2023 12:00am tamsulosin hydrochloride 0.4 mg oral capsule (2 sources) alpha-Adrenergic Nabila Start: 05-05-2023 take 1 capsule by mouth once daily Tamsulosin (Flomax) 0.4 mg capsule Active 0.4 MG PO DAILY May 04, 2023 11:00pm Problems Active Problems Problem Classification Problem Date Documented Da te Episodic/Chronic Calculus of urinary tract (4 sources) Kidney stone; Translations: [Calculus of kidney] 05-05-2023 Episodic Immunizations and screening for infectious disease (2 sources) Tetanus toxoid vaccination given; Translations: [Encounter for immunization] 09-26-2019 Episodic Mood disorders (2 sources) Episodic mood disorder; Translations: [Unspecified mood [affective] disorder] 10-11-2013 Chronic Open wounds of extremities (4 sources) Laceration of finger without foreign body; Translations: [Laceration without foreign body of right index finger without damage to nail, initial encounter] 09-26-2019 Episodic Other nervous system disorders (2 sources) H/O: epilepsy; Translations: [Personal history of other diseases of the nervous system and sense organs] 07-11-2015 Episodic Other upper respiratory disease (2 sources) Respiratory tract congestion; Translations: [Nasal congestion] 08-16-2021 Episodic Residual codes; unclassified (2 sources) Obstructive sleep apnea syndrome; Translations: [Obstructive sleep apnea (adult) (pediatric)] 07-11-2015 Chronic Spondylosis; intervertebral disc disorders; other back problems (2 sources) Chronic back pain ; Translations: [Dorsalgia, unspecified] 07-11-2015 Episodic Sprains and strains (2 sources) Low back strain; Translations: [Strain of muscle, fascia and tendon of lower back, initial encounter] 08-10-2017 Episodic Viral infection (3 sources) Disease caused by 2019-nCoV; Translations: [COVID-19] 08-16-2021 Episodic Past or Other Problems Problem Classification Problem Date Documented Da te Episodic/Chronic Abdominal pain (1 source) Unspecified abdominal pain; Translations: [Unspecified abdominal pain] Onset: 05-12-2023 Episodic Other lower respiratory disease (1 source) Shortness of breath; Translations: [Shortness of breath] Onset: 08-06-2023 Episodic Results Test Name Value Interpretation Reference Range Facility Office Visit Reporton 2023 Office Visit Report [facility] [address] [place] [address] OFFICE VISIT Date of Service: 10/07/23 MR#: [id number] Acct: [id number] Patient: MICKEY SOUSA Rep #: [id number] : 1970 Provider: BRIJESH Dickinson Age/Sex: 53/M Location: [facility] Status: Signed Intake Vital Signs 08/03/23 18:00 10/07/23 15:56 Height 6 ft 6 ft Intake Visit Reasons: PRE EMP/NON DOT/DRUG SCREEN/FRITO LAY Chief Complaint: RIF laceration Allergies No Known Allergies Allergy (Verified 05/04/23 19:02) Office Procedures [facility] Billing Sheet Testing Breath Alcohol Test in ED (applications programmer fee charged): No Breath Alcohol in [facility]: No Breath Alcohol Test Pre-Employment: No Chest X-Ray (interpreted by radiologist): No DOT Drug Screen: No DOT Physical Exam: No DOT Pre-Employment Breath Alcohol: No DOT Pre-Employment Drug Screen: No DOT Reasonable Suspicion: No Drug Screen Collection Only: No Drug Test Performed by another entity: No ECG: No ED production scheduler Fee: No Employer Ordered Physical: No Flu Test: No Functional Capacity Evaluation: No Glucose (Finger): No Hair Collection Drug Screen: No Hair Collection Only: No Hair Testing Extended (Opiates): No HCG: No Hearing (Audiogram) Test: No Non-DOT Breath Alcohol Test in ED: No Non-DOT Random Drug Screen: No Non-DOT Reasonable Suspicion: No On Site Service Call (min of 1 hr plus cost of drug screen): No Other DOT Drug Screen: No Other Non-DOT Drug Screen: No Post-Accident DOT Drug Screen (in ED applications programmer fee charged): No Post-Accident DOT Drug Screen in [facility]: No Post-Accident Non-DOT Breath Alcohol Test: No Post-Accident NON-DOT Drug Screen (applications programmer fee charged in ED): No Post-Accident NON-DOT Drug Screen in ED (applications programmer fee charged): No Post-Accident NON-DOT Drug Screen in [facility]: No Pre-Employment Drug Screen [facility]: No Pre-Employment Drug Screen: Yes Pre-Employment PE: No Random Consortium DOT (yearly plus drug testing fee): No Random Consortium Non-DOT (yearly plus drug testing fee): No Respirator Clearance (form only): No Respirator Fit Testing: No RSV/Flu Evita: No Saliva Drug Screen: No Second Drug Screen: No Strep Evita: No TB Test: No Tdap (over age 7): No Titmus Screening: No Vision Test: No Stress Test (conducted interpreted by a stationary steam engineer): No Occquant-Quantiferon: No 02/15/24 0632 Date Connor M Wyles PA PA Cosigner Signature: Date (if applicable) CC: Normal [facility] Chest PA and Lateralon 08-03 Chest PA and Lateral [facility] Imaging Services [address] [place] [address] Chest PA and Lateral MR#: [id number] Acct: [id number] Name: MICKEY SOUSA Rep #: [id number] : 1970 M 52 From: Landon Carrillo MD PCP: Care Physician,No Primary Status: REG ER Study: Chest PA and Lateral Date of Exam: 08/03/23 Exam# [id number] Ordering Dr: Natali Mistry [id number] STUDY: X-RAY CHEST REASON FOR EXAM: Male, 52 years old. Cough TECHNIQUE: PA and lateral views of the chest. COMPARISON: None. FINDINGS: The lungs are clear and expanded. There is stable right upper lung granuloma. There is no demonstrated pleural abnormality. Normal size heart. Normal mediastinum and jose j. Normal visualized pulmonary arteries. Normal visualized aortic arch and descending thoracic aorta. Normal visualized thoracic spine. Normal visualized ribs, clavicles, and shoulders. There is no demonstrated abnormality of the visualized soft tissue structures of the upper abdomen. RAD/Chest PA and Lateral IMPRESSION: No acute cardiopulmonary disease. Electronically Signed: Landon Carrillo MD at 19:36 EST , CC: BRIJESH Eaton; No Primary Care Physician Paper Bag Inspector: Signed Normal [facility] [facility] Emergency Department Summary on 08-03-2023 Emergency Department Summary [facility] Medical Records Department [address] [place] [address] Emergency Department Summary 08/03/23 MR#: [id number] Acct: [id number] Name: MICKEY SOUSA Rep #: [id number] : 1970 52 From: Marlo Altamirano DO PCP: Care Physician,No Primary Status:DEP ER Location: ED HPI History of Present Illness Chief Complaint: Shortness of Breath Narrative Narrative: 52-year-old male states over the last week he has had subjective fever and chills, body aches, congestion and productive cough, decreased appetite and occasional loose stools. Over the last couple days he is felt short of breath with the cough. He has untreated sleep apnea. He does not smoke or vape. He has no chest pain. His daughter was ill with similar symptoms. [facility] Medical History (Updated 08/03/23 @ 19:13 by BRIJESH Eaton) Weight loss Home Medications multivitamin (Daily Multi-Vitamin tablet) 1 tab PO DAILY PRN well being 05/04/23 [History Last Taken Unknown] ketorolac 10 mg tablet 10 mg PO Q8H PRN pain #10 tabs 05/05/23 [Rx Last Taken Unknown] tamsulosin 0.4 mg capsule (Flomax) 0.4 mg PO DAILY #4 caps 05/05/23 [Rx Last Taken Unknown] Allergy/AdvReac Type Severity Reaction Status Date / Time No Known Allergies Allergy Verified 05/04/23 19:02 Social History Smoking Status: Never smoker alcohol intake: current alcohol intake frequency: a few times a month Alcohol type: beer and wine ROS ROS ED ROS Narrative Constitutional: Positive for fever, chills, malaise. ENT: Positive for rhinorrhea. CVS: Negative for chest pain, syncope. Respiratory: Positive for shortness of breath, cough. GI: Positive for diarrhea. Negative for abdominal pain, nausea, vomiting, melena, hematochezia. Neuro: Negative for headache. EXAM Physical Exam Narrative Exam Narrative: CONST: Patient sitting in no acute distress. EYES: Normal inspection. NECK: Normal inspection. RESP: No respiratory distress, CTAB. CVS: Regular rate and rhythm, no murmur, no gallop. SKIN: Color normal, no rash, warm, dry, intact. EXTREMITIES: Normal appearance, no pedal edema. NEURO: Oriented x4. PSYCH: Normal affect. Const Vital Signs: 08/03/23 18:00 08/03/23 18:13 08/03/23 18:14 Temperature 96.8 F L Temperature Source Temporal Pulse Rate 71 64 Respiratory Rate 18 18 Respiratory Effort Non-Labored Short of Breath Respiratory Pattern Blood Pressure 175/97 H 147/90 H Blood Pressure Mean 123 109 Pulse Ox 98 98 Oxygen Delivery Method Room Air Room Air Room Air 08/03/23 18:16 08/03/23 19:36 Temperature Temperature Source Pulse Rate 74 Respiratory Rate 18 Respiratory Effort Respiratory Pattern Normal Blood Pressure 145/69 H Blood Pressure Mean 94 Pulse Ox 95 Oxygen Delivery Method Physical Exam Const Vital Signs: 08/03/23 18:00 08/03/23 18:13 08/03/23 18:14 Temperature 96.8 F L Temperature Source Temporal Pulse Rate 71 64 Respiratory Rate 18 18 Respiratory Effort Non-Labored Short of Breath Respiratory Pattern Blood Pressure 175/97 H 147/90 H Blood Pressure Mean 123 109 Pulse Ox 98 98 Oxygen Delivery Method Room Air Room Air Room Air 08/03/23 18:16 08/03/23 19:36 Temperature Temperature Source Pulse Rate 74 Respiratory Rate 18 Respiratory Effort Respiratory Pattern Normal Blood Pressure 145/69 H Blood Pressure Mean 94 Pulse Ox 95 Oxygen Delivery Method MDM MDM MDM Narrative Medical decision making narrative: Patient's family was ill and he has had 1 week of flulike symptoms with cough and feeling short of breath over the last few days. He appears well and nontoxic. He is hypertensive with otherwise stable vital signs. BP improved without intervention. He is 98% on room air and speaking in full sentences in no distress. Cardiopulmonary exam is within normal limits. Viral swab for COVID/influenza/RSV is negative. CXR shows no acute process. I suspect he has another viral illness/bronchitis. With normal O2 saturations and no chest pain he does not require further emergent workup. Return precautions were discussed and he was discharged in stable condition. Radiography Diagnostic Testing: Clinical Impression(s) from Imaging Studies Chest X-Ray 08/03/23 18:33 IMPRESSION: No acute cardiopulmonary disease. Electronically Signed: Landon Carrillo MD at 19:36 EST , ED attending interpretation of 2-view chest x-ray shows normal heart size, no acute infiltrate, edema, or effusion. MDM Radiography Diagnostic Testing: (more content not included)... Normal [facility] - Microbiology an d Antimicrobial susceptibilityOrdered By: Natali Mistry on 08-03-2023 SARS-CoV-2 (COVID-19) RNA EDWAR+probe Ql (Unsp spec) [facility] M100.678on 08-03-2023 M100.678 SARS-CoV-2 (COVID 19 ) Negative INFLUENZA A Negative INFLUENZA B Negative RSV PCR Negative Normal [facility] Comment on above: Performed By: #### M 100.678 #### [facility] [address] [place], [address] Abdomen/Pelvis without Conto n 05-04-2023 Abdomen/Pelvis without Cont [facility] Imaging Services [address] [place] [address] Abdomen/Pelvis without Cont MR#: [id number] Acct: [id number] Name: MICKEY SOUSA Rep #: [id number] : 1970 M 52 From: Rossy Schmitz MD PCP: Care Physician,No Primary Status: REG ER Study: Abdomen/Pelvis without Cont Date of Exam: 04/13 10/02 Exam# [id number] Ordering Dr: Juan Pablo Pollard MD [id number] EXAM: CT ABDOMEN AND PELVIS WITHOUT INTRAVENOUS CONTRAST CLINICAL INDICATION: left flank pain. Stone hx TECHNIQUE: Helically acquired images were obtained of the abdomen and pelvis without intravenous contrast. This CT exam was performed using one or more of the following dose reduction techniques: automated exposure control, adjustment of the mA and/or kV according to patient size, and/or use of iterative reconstruction technique. RADIATION DOSE: CTDIvol = 23.48 mGy, DLP = 1343.25 mGy-cm. COMPARISON: March 13 2016 enhanced exam. FINDINGS: LOWER THORAX: At least mild calcification in left coronary artery, not fully included. Normal heart size. Lung bases are clear. No significant pericardial effusion. ABDOMEN: LIVER: Unremarkable. Homogeneous. GALLBLADDER AND BILE DUCTS: Small hyperdense layer of presumed tiny stones in the gallbladder, the gallbladder is mildly underdistended. No intra- or extrahepatic biliary ductal dilation. PANCREAS: Unremarkable. No focal cystic mass. SPLEEN: Unremarkable. Normal size without focal cystic or solid mass. ADRENALS: Unremarkable. No nodules. KIDNEYS AND URETERS: Mild left hydroureteronephrosis to the level of a 4.7 mm x 4 mm x 5 mm stone in the left UVJ, expected to pass shortly. Additional tiny solitary 2 mm stone in the left kidney. Mid left ureter 7 mm, left renal pelvis 1.2 cm AP. Slight left perinephric soft tissue stranding, no significant perinephric fluid. Normal renal size and position. STOMACH AND BOWEL: Collapse of much of the mid to distal colon, this is a limited exam for screening. No stomach or bowel distention. No focal inflammatory change. PELVIS: APPENDIX: Normal appendix is seen on sagittal images. BLADDER: See below. REPRODUCTIVE: Prostatomegaly, at least 6.7 cm x 5.2 cm x 5.3 cm with impression on the bladder base. ABDOMEN and PELVIS: INTRAPERITONEAL SPACE: Unremarkable. No ascites or other fluid collection. No free air. BONES/JOINTS: Vacuum disc and spondylosis with disc space narrowing at L4-5 and milder changes at L3-4 and L5-S1. No evidence of a significant degree of spinal canal stenosis but at least mild neural foraminal stenosis at multiple levels. No suspicious lytic or blastic abnormality. SOFT TISSUES: Small fat-containing umbilical hernia. VASCULATURE: See above. LYMPH NODES: Unremarkable. No enlarged lymph nodes. CT/Abdomen/Pelvis without Cont IMPRESSION: 1. Mild left hydroureteronephrosis to the level of a stone in the left UVJ. 2. Left nephrolithiasis. 3. Cholelithiasis. No evidence of acute cholecystitis. 4. Prostatomegaly. 5. Collapse of much of the colon, this is a very limited exam for colonic screening for early neoplasm. 6. Degenerative spine changes. Small fat-containing umbilical hernia. 7. At least mild coronary artery calcification. Heart is not fully included. Electronically Signed: Rossy Schmitz MD at 23:48 EDT , CC: Dr. Juan Pablo Pollard MD; No Primary Care Physician Paper Bag Inspector: Signed Normal [facility] Absolute lymphocyte countOrd ered By: ED PROVIDER on 05-04-2023 Lymphocytes Auto (Unsp spec) [#/Vol] 2.21 10*3/uL 0.83-4.51 [facility] Basophil percentageOrdered B y: ED PROVIDER on 05-04-2023 Basophil percentage 0-5 SEEN /hpf 0-5 [facility] Basophils/100 WBC (Bld) 1.1 % 0-1 [facility] [place] Bilirubin [Mass/Vol] 0.50 mg/dL 0.20-1.00 [facility] Comment on above: For patients on eltr ombopag therapy, use of Dimension [place] TBIL is not recommended. Chloride [Moles/Vol] 107 mmol/L 98-107 [facility] Eosinophils/100 WBC (Bld) 2.0 % 0-5 [facility] Glucose [Mass/Vol] 132 mg/dL 74-106 [facility] Comment on above: Fasting Glucose resu lt greater than or equal to 126 mg/dL suggests DIABETES MELLITUS per A.D.A. criteria. Neutrophils (Bld) [#/Vol] 5.2 10*3/uL 2.0-7.7 [facility] Neutrophils/100 WBC (Bld) 61.7 % 47-70 [facility] Potassium [Moles/Vol] 3.8 mmol/L 3.5-5.1 [facility] Protein [Mass/Vol] 8.1 g/dL 6.4-8.2 [facility] Sodium [Moles/Vol] 138 mmol/L 136-145 [facility] WBC (Bld) [#/Vol] 8.5 10*3/uL 4.4-11.0 [facility] Bilirubin Test strip Ql (U)O rdered By: ED PROVIDER on 05-04-2023 Bilirubin Ql (U) Negative Negative [facility] Blood erythrocytes count (nu mber/volume)Ordered By: ED PROVIDER on 05-04-2023 RBC (Bld) [#/Vol] 5.17 10*6/uL 4.6-6.2 [facility] Blood hemoglobin measurement (mass/volume)Ordered By: ED PROVIDER on 05-04-2023 Hemoglobin (Bld) [Mass/Vol] 16.4 g/dL 13.0-16.5 [facility] Blood lymphocytes/100 leukoc ytesOrdered By: ED PROVIDER on 05-04-2023 Lymphocytes/100 WBC (Bld) 26.1 % 19-41 [facility] Blood monocytes/100 leukocyt esOrdered By: ED PROVIDER on 05-04-2023 Monocytes/100 WBC (Bld) 8.7 % 0-10 [facility] Blood platelet mean volumeOr dered By: ED PROVIDER on 05-04-2023 Platelet mean volume (Bld) [Entitic vol] 10.4 fL 6.2-12.0 [facility] CBC W/Diff, Automatedon 10- Absolute Lymph 2.21 X10 3/uL Normal 0.83-4.51 [facility] Comment on above: Performed By: #### L 500.4050, L100.0100 #### [facility] [address] [place], [address] Absolute Neut 5.2 X10 3/uL Normal 2.0-7.7 [facility] Comment on above: Performed By: #### L 500.4050, L100.0100 #### [facility] [address] [place], [address] Basophils/100 WBC (Bld) 1.1 % High 0-1 [facility] Comment on above: Performed By: #### L 500.4050, L100.0100 #### [facility] [address] [place], [address] Eosinophils/100 WBC (Bld) 2.0 % Normal 0-5 [facility] Comment on above: Performed By: #### L 500.4050, L100.0100 #### [facility] [address] [place], [address] Erythrocyte distribution width (RBC) [Ratio] 12.6 % Normal 11.6-14.6 [facility] Comment on above: Performed By: #### L 500.4050, L100.0100 #### [facility] [address] [place], [address] Hematocrit (Bld) [Volume fraction] 48.9 % Normal 40-54 [facility] Comment on above: Performed By: #### L 500.4050, L100.0100 #### [facility] [address] [place], [address] Hemoglobin (Bld) [Mass/Vol] 16.4 g/dL Normal 13.0-16.5 [facility] Comment on above: Performed By: #### L 500.4050, L100.0100 #### [facility] [address] [place], [address] IG% 0.400 Normal 0.0-0.9 [facility] Comment on above: Result Comment: IG% - Immature Granulocytes (promyelocytes, myelocytes and metamyelocytes) > 1% indicates that a LEFT SHIFT is Present. Performed By: #### L 500.4050, L100.0100 #### [facility] [address] [place], [address] Lymphocytes/100 WBC (Bld) 26.1 % Normal 19-41 [facility] Comment on above: Performed By: #### L 500.4050, L100.0100 #### [facility] [address] [place], [address] MCH (RBC) [Entitic mass] 31.7 pg Normal 27.0-32.0 [facility] Comment on above: Performed By: #### L 500.4050, L100.0100 #### [facility] [address] [place], [address] MCHC (RBC) [Mass/Vol] 33.5 g/dL Normal 32-36 [facility] Comment on above: Performed By: #### L 500.4050, L100.0100 #### [facility] [address] [place], [address] MCV (RBC) [Entitic vol] 94.6 fL High 80-94 [facility] Comment on above: Performed By: #### L 500.4050, L100.0100 #### [facility] [address] [place], [address] Monocytes/100 WBC (Bld) 8.7 % Normal 0-10 [facility] [place] Comment on above: Performed By: #### L 500.4050, L100.0100 #### [facility] [address] [place], [address] Neutrophils/100 WBC (Bld) 61.7 % Normal 47-70 [facility] Comment on above: Performed By: #### L 500.4050, L100.0100 #### [facility] [address] [place], [address] Nucleated RBC (Bld) [#/Vol] 0 10*3/uL Normal 0-5 [facility] Comment on above: Performed By: #### L 500.4050, L100.0100 #### [facility] [address] [place], [address] Platelet mean volume (Bld) [Entitic vol] 10.4 fL Normal 6.2-12.0 [facility] Comment on above: Performed By: #### L 500.4050, L100.0100 #### [facility] [address] [place], [address] Platelets (Bld) [#/Vol] 239 10*3/uL Normal 150-450 [facility] Comment on above: Performed By: #### L 500.4050, L100.0100 #### [facility] [address] [place], [address] RBC (Bld) [#/Vol] 5.17 10*6/uL Normal 4.6-6.2 [facility] Comment on above: Performed By: #### L 500.4050, L100.0100 #### [facility] [address] [place], [address] RDW SD 44.1 fl High 35.1-43.9 [facility] Comment on above: Performed By: #### L 500.4050, L100.0100 #### [facility] [address] [place], [address] WBC (Bld) [#/Vol] 8.5 10*3/uL Normal 4.4-11.0 [facility] Comment on above: Performed By: #### L 500.4050, L100.0100 #### [facility] [address] [place], [address] Comprehensive Metabolic Prof [facility] 05-04-2023 Albumin [Mass/Vol] 3.7 g/dL Normal 3.2-5.0 [facility] Comment on above: Performed By: #### L 500.4050, L100.0100 #### [facility] [address] [place], [address] Albumin/Globulin [Mass ratio] 0.8 {ratio} Low 0.9-2.4 [facility] Comment on above: Performed By: #### L 500.4050, L100.0100 #### [facility] [address] [place], [address] ALK P 96 U/L Normal 45-117 [facility] Comment on above: Performed By: #### L 500.4050, L100.0100 #### [facility] [address] [place], [address] ALT [Catalytic activity/Vol] 71 U/L High 16-61 [facility] Comment on above: Performed By: #### L 500.4050, L100.0100 #### [facility] [address] [place], [address] AST [Catalytic activity/Vol] 31 U/L Normal 15-37 [facility] Comment on above: Performed By: #### L 500.4050, L100.0100 #### [facility] [address] [place], [address] Bilirubin [Mass/Vol] 0.50 mg/dL Normal 0.20-1.00 [facility] Comment on above: Result Comment: For patients on eltrombopag therapy, use of Dimension [place] TBIL is not recommended. Performed By: #### L 500.4050, L100.0100 #### [facility] [address] [place], [address] BUN/CRE 12.0 RATIO Normal 10-20 [facility] Comment on above: Performed By: #### L 500.4050, L100.0100 #### [facility] [address] [place], [address] CA,Total 9.2 mg/dL Normal 8.5-10.1 [facility] Comment on above: Performed By: #### L 500.4050, L100.0100 #### [facility] [address] [place], [address] Chloride [Moles/Vol] 107 mmol/L Normal 98-107 [facility] Comment on above: Performed By: #### L 500.4050, L100.0100 #### [facility] [address] [place], [address] CO2 [Moles/Vol] 25.0 mmol/L Normal 21.0-32.0 [facility] Comment on above: Performed By: #### L 500.4050, L100.0100 #### [facility] [address] [place], [address] Creatinine [Mass/Vol] 1.33 mg/dL High 0.70-1.30 [facility] Comment on above: Result Comment: The validity of the calculated GFR GFRAA in patients over 70 years has not been determined. Clinical correlation is essential. Performed By: #### L 500.4050, L100.0100 #### [facility] [address] [place], [address] ECRCL 71.31 ml/min Normal [facility] Comment on above: Performed By: #### L 500.4050, L100.0100 #### [facility] [address] [place], [address] EST GFR - AA 72 mL/min Normal >60 [facility] Comment on above: Result Comment: Afri can Mauritanian GFR Calc Performed By: #### L [id number], L100.0100 #### [facility] [address] [place], [address] GAP 6 Normal 5-15 [facility] Comment on above: Performed By: #### L [id number], L100.0100 #### [facility] [address] [place], [address] GFR/1.73 sq M.predicted among non-blacks MDRD (S/P/Bld) [Vol rate/Area] 60 mL/min/{1.73_m2} Normal >60 [facility] Comment on above: Result Comment: Non- GFR Calc Performed By: #### L 500.4050, L100.0100 #### [facility] [address] [place], [address] Globulin (S) [Mass/Vol] 4.4 g/dL High 2.2-4.2 [facility] Comment on above: Performed By: #### L [id number], L100.0100 #### [facility] [address] [place], [address] Glucose [Mass/Vol] 132 mg/dL High 74-106 [facility] Comment on above: Result Comment: Fast ing Glucose result greater than or equal to 126 mg/dL suggests DIABETES MELLITUS per A.D.A. criteria. Performed By: #### L 500.4050, L100.0100 #### [facility] [address] [place], [address] Potassium [Moles/Vol] 3.8 mmol/L Normal 3.5-5.1 [facility] Comment on above: Performed By: #### L [id number], L100.0100 #### [facility] [address] [place], [address] Sodium [Moles/Vol] 138 mmol/L Normal 136-145 [facility] Comment on above: Performed By: #### L [id number], L100.0100 #### [facility] [address] [place], [address] T PROT 8.1 g/dL Normal 6.4-8.2 [facility] Comment on above: Performed By: #### L [id number], L100.0100 #### [facility] [address] [place], [address] Urea nitrogen [Mass/Vol] 16 mg/dL Normal 7-18 [facility] Comment on above: Performed By: #### L [id number], L100.0100 #### [facility] [address] [place], [address] Determination of erythrocyte mean corpuscular volume (MCV)Ordered By: ED PROVIDER on 05-04-2023 MCV (RBC) [Entitic vol] 94.6 fL 80-94 [facility] [place] Emergency Department Summary on 05-04-2023 Emergency Department Summary [facility] Medical Records Department [address] [place] [address] Emergency Department Summary 05/04/23 MR#: [id number] Acct: [id number] Name: MICKEY SOUSA Rep #: [id number] : 1970 52 From: Juan Pablo Pollard MD PCP: Care Physician,No Primary Status:REG ER Location: ED HPI HPI - GI History of Present Illness Chief Complaint: Abd Pain Detail of Chief Complaint: Left flank pain around 6 PM. History of kidney stones. Informant: patient and family Abdominal Pain/Flank Pain Onset: Today and Hours Context: Sudden Onset Timing: Continuous Location: Left Flank Current Severity: Moderate Maximum Severity: Moderate Nausea/Vomiting/Emesis GI Symptom: Positive for Nausea and Vomiting Onset: Today Severity: Mild Diarrhea/Melena/Hematoch ezia GI Symptom: Negative for Diarrhea Associated Symptoms Associated Symptoms: Negative for Dysuria, Frequency, Hematuria or Urgency Narrative Narrative: 52-year-old male history of kidney stone presented left flank pain today rating to his left groin. Thinks it is a kidney stone. Denies dysuria hematuria. No fever. With the pain he had nausea and vomiting. He is always passed the stones. He is never needed a stent or surgery. Prior similar symptoms: Yes Recent Illness/Hospitalization: No PFSH PFSH Medical History Weight loss Home Medications NK 09/25/19 [History Last Taken Unknown] Allergy/AdvReac Type Severity Reaction Status Date / Time No Known Allergies Allergy Verified 05/04/23 19:02 Social History Smoking Status: Former smoker alcohol intake: current alcohol intake frequency: a few times a month Alcohol type: beer and wine ROS ROS ED ROS Narrative Left flank pain. Nausea vomiting. Review of Systems ROS Unobtainable: Denies due to encephalopathy Constitutional Constitutional ED: Denies chills or fever(s) ENT ENT ED: Denies ear pain Cardiovascular Cardiovascular: Denies chest pain Respiratory/Chest Respiratory/Chest: Denies cough or dyspnea Gastrointestinal Gastrointestinal: Reports abdominal pain, nausea and vomiting; Denies constipation, diarrhea or melena Genitourinary Genitourinary ED: Denies dysuria, hematuria or urinary frequency Musculoskeletal Musculoskeletal: Denies arthralgias Integumentary Denies abscess or Abrasions Neurologic Neurologic: Denies headache(s) Psychiatric Psychiatric: Denies anxiety Endocrine Endocrinology: Denies polydipsia Hematologic/Lymphatic Hematologic/Lymphatic: Denies easy bleeding or easy bruising Allergic/Immunologic Allergic/Immunologic ED: Denies mouth swelling EXAM Physical Exam Narrative Exam Narrative: 50-year-old male complain left flank pain. Vital signs stable afebrile. HEENT exam unremarkable. Lungs clear. Heart regular rhythm rate about 70 no murmur. Abdomen soft nondistended normal bowel sounds no peritoneal signs. He describes the pain at the left flank. It is really not specifically reproducible. There is no hernia or mass or distention. No pulsatile mass. Back nontender. Moving all 4 extremities. Neurologically is awake and alert. Const Vital Signs: 05/04/23 19:02 Temperature 96.9 F L Temperature Source Temporal Pulse Rate 69 Respiratory Rate 16 Blood Pressure 188/100 H Blood Pressure Mean 129 Pulse Ox 98 Oxygen Delivery Method Room Air Positive well nourished and well developed; Negative for cachectic, contractures or unkempt General Appearance ED: well developed and NAD; Negative for unkempt, cachectic, contractures or pallor Nutritional Appearance: Negative for cachectic HEENT Reports moist mucous membranes normocephalic and atraumatic; Negative for trauma or tenderness Eyes PERRL and EOMs intact bilaterally General Eye ED: Negative for pale conjunctiva or scleral icterus Neck no lymphadenopathy, supple and no JVD General: Negative for tenderness Carotids: Negative for other Lymph Lymphatic: Negative for other Resp normal respiratory effort and clear to auscultation bilaterally Effort and Inspection: Negative for respiratory distress Auscultation: Negative for rales, rhonchi or wheezes Cardio regular rate, regular rhythm, S1 normal heart sound, S2 normal heart sound and no murmurs Rate: Negative for bradycardia or tachycardic Rhythm: Negative for abnormal rhythm GI non-tender, non-distended and no masses Inspection: Negative for abdominal distention Auscultation: normoactive bowel sounds Palpation: soft; Negative for tender or guarding Back/Spine Negative for no CVA tenderness General Back: Negative for CVA tenderness Cervical Spine: Negative for cervical spine tenderness Thoracic Spine / Upper Back: Negative for thoracic spinal tenderness (more content not included)... Normal [facility] Hematocrit Auto (Bld) [Volum e fraction]Ordered By: ED PROVIDER on 05-04-2023 Hematocrit (Bld) [Volume fraction] 48.9 % 40-54 [facility] Ketones Test strip Ql (U)Ord ered By: ED PROVIDER on 05-04-2023 Ketones Ql (U) 5 mg/dl Negative [facility] - Chemistry and C hemistry - challengeOrdered By: ED PROVIDER on 05-04-2023 ALP [Catalytic activity/Vol] 96 U/L 45-117 [facility] ALT [Catalytic activity/Vol] 71 U/L 16-61 [facility] CO2 [Moles/Vol] 25.0 mmol/L 21.0-32.0 [facility] Globulin (S) [Mass/Vol] 4.4 g/dL 2.2-4.2 [facility] Urea nitrogen/Creatinine [Mass ratio] 12.0 mg/mg 10-20 [facility] - Hematology and Cell countsOrdered By: ED PROVIDER on 05-04-2023 Erythrocyte distribution width (RBC) [Entitic vol] 44.1 fL 35.1-43.9 [facility] Erythrocyte distribution width (RBC) [Ratio] 12.6 % 11.6-14.6 [facility] Immature granulocytes/100 WBC (Bld) 0.400 % 0.0-0.9 [facility] Comment on above: IG% - Immature Granu locytes (promyelocytes, myelocytes and metamyelocytes) > 1% indicates that a LEFT SHIFT is Present. MCH (RBC) [Entitic mass] 31.7 pg 27.0-32.0 [facility] Nucleated RBC/100 WBC (Bld) [Ratio] 0 % 0-5 [facility] MCHC Auto (RBC) [Mass/Vol]Or dered By: ED PROVIDER on 05-04-2023 MCHC (RBC) [Mass/Vol] 33.5 g/dL 32-36 [facility] Mucus LM Ql (Urine sed)Order ed By: ED PROVIDER on 05-04-2023 Mucus Ql (Urine sed) 0 SEEN /hpf [facility] Nitrite Test strip Ql (U)Ord ered By: ED PROVIDER on 05-04-2023 Nitrite Ql (U) Negative Negative [facility] No Panel InformationOrdered By: ED PROVIDER on 05-04-2023 Estimated Creatinine Clearance Calc 71.31 ml/min [facility] Estimated GFR (MDRD) Amer 72 mL/min >60 [facility] Comment on above: GFR Calc Estimated GFR (MDRD) Non-Af Amer 60 mL/min >60 [facility] Comment on above: Non- GFR Calc Platelets bldOrdered By: ED PROVIDER on 05-04-2023 Platelets (Bld) [#/Vol] 239 10*3/uL 150-450 [facility] Protein Test strip Ql (U)Ord ered By: ED PROVIDER on 05-04-2023 Protein Ql (U) 30 mg/dl Negative [facility] Serum or plasma albumin tiana urement (mass/volume)Ordered By: ED PROVIDER on 05-04-2023 Albumin [Mass/Vol] 3.7 g/dL 3.2-5.0 [facility] Serum or plasma albumin/glob ulin mass ratioOrdered By: ED PROVIDER on 05-04-2023 Albumin/Globulin [Mass ratio] 0.8 {ratio} 0.9-2.4 [facility] Serum or plasma calcium tiana urement (mass/volume)Ordered By: ED PROVIDER on 05-04-2023 Calcium [Mass/Vol] 9.2 mg/dL 8.5-10.1 [facility] Serum or plasma creatinine m easurement (mass/volume)Ordered By: ED PROVIDER on 05-04-2023 Creatinine [Mass/Vol] 1.33 mg/dL 0.70-1.30 [facility] Comment on above: The validity of the calculated GFR & GFRAA in patients over 70 years has not been determined. Clinical correlation is essential. Serum or plasma urea nitroge n measurement (mass/volume)Ordered By: ED PROVIDER on 05-04-2023 Urea nitrogen [Mass/Vol] 16 mg/dL 7-18 [facility] Squamous epithelial cells de tection in urine sediment by light microscopyOrdered By: ED PROVIDER on 05-04-2023 Epithelial cells.squamous LM Ql (Urine sed) 0-5 SEEN /hpf 0-5 [facility] Thin prep Papanicolaou smear with manual screeningOrdered By: ED PROVIDER on 05-04-2023 Thin prep Papanicolaou smear with manual screening 31 U/L 15-37 [facility] Thin prep Papanicolaou smear with manual screening 6 5-15 [facility] Urinalysis, Completeon 05-04 EPI,SQUAMOUS 0-5 SEEN Normal 0-5 [facility] Comment on above: Order Comment: CLEAN CATCH Performed By: #### L 400.0001 #### [facility] [address] [place], [address] RBC 0-5 SEEN Normal 0-5 [facility] Comment on above: Order Comment: CLEAN CATCH Performed By: #### L 400.0001 #### [facility] [address] [place], [address] WBC 0-5 SEEN Normal 0-5 [facility] Comment on above: Order Comment: CLEAN CATCH Performed By: #### L 400.0001 #### [facility] [address] [place], [address] BACTERIA 0 SEEN Normal None Seen [facility] Comment on above: Order Comment: CLEAN CATCH Performed By: #### L 400.0001 #### [facility] [address] [place], [address] Mucus Ql (Urine sed) 0 SEEN Normal [facility] Comment on above: Order Comment: CLEAN CATCH Performed By: #### L 400.0001 #### [facility] [address] [place], [address] Urine blood detectionOrdered By: ED PROVIDER on 05-04-2023 RBC Ql (U) 50 /ul Negative [facility] RBC Ql (U) 0-5 SEEN /hpf 0-5 [facility] Urine clarityOrdered By: ED PROVIDER on 05-04-2023 Clarity (U) Clear Clear [facility] Urine color determinationOrd ered By: ED PROVIDER on 05-04-2023 Color (U) Yellow Yellow [facility] Urine glucose detectionOrder ed By: ED PROVIDER on 05-04-2023 Glucose Ql (U) Normal mg/dl Normal [facility] Urine leukocyte esterase det ection by dipstickOrdered By: ED PROVIDER on 05-04-2023 Leukocyte esterase Test strip Ql (U) 25 /ul Negative [facility] Urine pHOrdered By: ED PROVI MICHAEL on 05-04-2023 pH (U) 5.0 [pH] 5.0 - 8.0 [facility] Urine sediment bacteria coun t by microscopy (number/high power field)Ordered By: ED PROVIDER on 05-04-2023 Bacteria LM.HPF (Urine sed) [#/Area] 0 /[HPF] None Seen [facility] Urine specific gravity measu rementOrdered By: ED PROVIDER on 05-04-2023 Specific gravity (U) [Rel density] 1.030 1.002-1.030 [facility] Urobilinogen Auto test strip Ql (U)Ordered By: ED PROVIDER on 05-04-2023 Urobilinogen Ql (U) Normal mg/dl Normal [facility] Vital Signs Date Time Vital Sign Value Performing Clinician Faci lity 08-03-2023 19:36-0500 Diastolic blood pressure 69 mm[Hg] [facility] 08-03-2023 19:36-0500 Heart rate 74 /min [facility] 08-03-2023 19:36-0500 Respiratory rate 18 /min [facility] 08-03-2023 19:36-0500 SaO2% (BldA) [Mass fraction] 95 % [facility] 08-03-2023 19:36-0500 Systolic blood pressure 145 mm[Hg] [facility] 08-03-2023 18:00-0500 Body height 182.88 cm [facility] 08-03-2023 18:00-0500 Body mass index (BMI) [Ratio] 37 kg/m2 [facility] 08-03-2023 18:00-0500 Body temperature 96.8 [degF] [facility] 08-03-2023 18:00-0500 Body weight 123.78 kg [facility] 05-05-2023 00:38-0400 Diastolic blood pressure 91 mm[Hg] [facility] 05-05-2023 00:38-0400 Systolic blood pressure 145 mm[Hg] [facility] 05-04-2023 21:42-0400 Body temperature 96.9 [degF] [facility] 05-04-2023 21:42-0400 Heart rate 69 /min [facility] 05-04-2023 21:42-0400 Respiratory rate 16 /min [facility] 05-04-2023 21:42-0400 SaO2% (BldA) [Mass fraction] 98 % [facility] 05-04-2023 19:02-0400 Body height 182.88 cm [facility] 05-04-2023 19:02-0400 Body mass index (BMI) [Ratio] 37.7 kg/m2 [facility] 05-04-2023 19:02-0400 Body weight 126.05 kg [facility] Encounters Encounter Date Encounter Type Care Provider Facility Start: 10-07-2023 End: 10-07-2023 ambulatory Connor COLEY Facility:[facility] Start: 08-03-2023 End: 08-03-2023 Emergency department patient visit [facility] Work Phone: Start: 05-04-2023 End: 05-05-2023 Emergency department patient visit [facility] Work Phone: Procedures Date Procedure Procedure Detail Performing Clinician Start: 08-03-2023 Plain chest X-ray Start: 08-03-2023 SARS-CoV-2, Influenz a & RSV (PCR) Start: 05-04-2023 CT of abdomen and pe lvis without contrast Plan of Treatment Date Care Activity Detail Author Start: 08-03-2023 [facility] Start: 05-05-2023 [facility] Patient Education [facility] Work Phone: Patient referral [facility] Work Phone: Immunizations Immunization Date Immunization Notes Care Provider Fa zoe 09-25-2019 tetanus toxoid, redu rehan diphtheria toxoid, and acellular pertussis vaccine, adsorbed [facility] Payers Date Payer Category Payer Unknown [id number] 2023 Self-pay [id number] Unknown [id number] Unknown [id number] Unknown [id number] Unknown [id number] Social History Date Type Detail Facility Start: 05-04-2023 End: 08-03-2023 Tobacco smoking status NHIS Unknown if ever smoked [facility] Start: 09-25-2019 Occasional [facility] Start: 09-25-2019 None [facility] Start: 09-25-2019 Alone [facility] Start: 08-16-2021 Pipe [facility] Start: 1970 Sex Assigned At Male [facility] Mental Status Date Assessment Result Facility 08-03-2023 Cognitive function Level Of Cons ciousness Awake;Alert;Appropriate;Follow s Commands [facility] Work Phone: Discharge summary 05-04-2023 Note Date & Type Note Facility 05-04-2023 Discharge summary Note Date/Time May 04, 2023 9:43pm [facility] Medical Records Department [address] [place] [address] Emergency Department Summary 05/04/23 MR#: [id number] Acct: [id number] Name: MICKEY SOUSA Rep #:[id number] : 1970 52 From: Juan Pablo Pollard MD PCP: Care Physician,No Primary Status :REG ER Location: ED HPI HPI - GI History of Present Illness Chief Complaint: Abd Pain Detail of Chief Complaint: Left flank pain around 6 PM. History of kidney stones. Informant: patient and family Abdominal Pain/Flank Pain Onset: Today and Hours Context: Sudden Onset Timing: Continuous Location: Left Flank Current Severity: Moderate Maximum Severity: Moderate Nausea/Vomiting/Emesis GI Symptom: Positive for Nausea and Vomiting Onset: Today Severity: Mild Diarrhea/Melena/Hematochezia GI Symptom: Negative for Diarrhea Associated Symptoms Associated Symptoms: Negative for Dysuria, Frequency, Hematuria or Urgency Narrative Narrative: 52-year-old male history of kidney stone presented left flank pain today rating to his left groin. Thinks it is a kidney stone. Denies dysuria hematuria. No fever. With the pain he had nausea and vomiting. He is always passed the stones. He is never needed a stent or surgery. Prior similar symptoms: Yes Recent Illness/Hospitalization: No PFSH PFSH Medical History Weight loss Home Medications NK 09/25/19 [History Last Taken Unknown] Allergy/AdvReac Type Severity Reaction Status Date / Time No Known Allergies Allergy Verified 05/04/23 19:02 Social History Smoking Status: Former smoker alcohol intake: current alcohol intake frequency: a few times a month Alcohol type: beer and wine ROS ROS ED ROS Narrative Left flank pain. Nausea vomiting. Review of Systems ROS Unobtainable: Denies due to encephalopathy Constitutional Constitutional ED: Denies chills or fever(s) ENT ENT ED: Denies ear pain Cardiovascular Cardiovascular: Denies chest pain Respiratory/Chest Respiratory/Chest: Denies cough or dyspnea Gastrointestinal Gastrointestinal: Reports abdominal pain, nausea and vomiting; Denies constipation, diarrhea or melena Genitourinary Genitourinary ED: Denies dysuria, hematuria or urinary frequency Musculoskeletal Musculoskeletal: Denies arthralgias Integumentary Denies abscess or Abrasions Neurologic Neurologic: Denies headache(s) Psychiatric Psychiatric: Denies anxiety Endocrine Endocrinology: Denies polydipsia Hematologic/Lymphatic Hematologic/Lymphatic: Denies easy bleeding or easy bruising Allergic/Immunologic Allergic/Immunologic ED: Denies mouth swelling EXAM Physical Exam Narrative Exam Narrative: 50-year-old male complain left flank pain. Vital signs stable afebrile. HEENT exam unremarkable. Lungs clear. Heart regular rhythm rate about 70 no murmur. Abdomen soft nondistended normal bowel sounds no peritoneal signs. He describesthe pain at the left flank. It is really not specifically reproducible. There is no hernia or mass or distention. No pulsatile mass. Back nontender. Movingall 4 extremities. Neurologically is awake and alert. Const Vital Signs: 05/04/23 19:02 Temperature 96.9 F L Temperature Source Temporal Pulse Rate 69 Respiratory Rate 16 Blood Pressure 188/100 H Blood Pressure Mean 129 Pulse Ox 98 Oxygen Delivery Method Room Air Positive well nourished and well developed; Negative for cachectic, contracturesor unkempt General Appearance ED: well developed and NAD; Negative for unkempt, cachectic, contractures or pallor Nutritional Appearance: Negative for cachectic HEENT Reports moist mucous membranes normocephalic and atraumatic; Negative for trauma or tenderness Eyes PERRL and EOMs intact bilaterally General Eye ED: Negative for pale conjunctiva or scleral icterus Neck no lymphadenopathy, supple and no JVD General: Negative for tenderness Carotids: Negative for other Lymph Lymphatic: Negative for other Resp normal respiratory effort and clear to auscultation bilaterally Effort and Inspection: Negative for respiratory distress Auscultation: Negative for rales, rhonchi or wheezes Cardio regular rate, regular rhythm, S1 normal heart sound, S2 normal heart sound and no murmurs Rate: Negative for bradycardia or tachycardic Rhythm: Negative for abnormal rhythm GI non-tender, non-distended and no masses Inspection: Negative for abdominal distention Auscultation: normoactive bowel sounds Palpation: soft; Negative for tender or guarding Back/Spine Negative for no CVA tenderness General Back: Negative for CVA tenderness Cervical Spine: Negative for cervical spine tenderness Thoracic Spine / Upper Back: Negative for thoracic spinal tenderness Lumbar Spine / Lower Back: Negative for lumbar spinal tenderness Coccyx: Negative for other Extremity full ROM General Extremety ED: Negative for edema or tenderness General Extremity: Negative for edema Neuro CN's II-XII intact bilaterally and moves all extremities Sensorium / Orientation: alert, oriented to person, oriented to place and oriented to time; Negative for orientation impaired, confused or lethargic Motor Exam: strength 5/5 throughout Psych mental status grossly normal and thought process normal Appearance: Negative for unkempt Attitude: No agitated Mood & Affect: Negative for depressed, anxious or tearful Skin no wounds General Skin Exam: Negative for jaundice or pallor Lesions: no lesions Rashes: no rashes Trauma: Negative for abrasion Nails: Negative for discolored MDM MDM MDM Narrative Medical decision making narrative: 52-year-old male with left flank pain with a history of kidney stones. Screening labs are unremarkable. Awaiting CAT scan results. He is being treated with Dilaudid for pain Zofran for nausea and Toradol. History & Record Review Discussion w/independent historian: Patient and Family Additional record(s) reviewed:: Prior inpatient record, Prior outpatient record,Prior ED visit and Prior labs Lab Data Attestation: I reviewed the patient's lab results. Lab results narrative: CBC unremarkable. White count 8.5. H&H is 16 and 48. Platelets 239. Electrolytes unremarkable gap of 6 BUN and creatinine is 16 and 1.3. Glucose 132. Liver enzymes are unremarkable. Urinalysis shows no nitrites nor any red or white cells nor bacteria. Labs: Laboratory Results - last 24 hr 05/04/23 05/04/23 19:10 19:15 WBC 8.5 RBC 5.17 Hgb 16.4 Hct 48.9 MCV 94.6 H MCH 31.7 MCHC 33.5 RDW Std Deviation 44.1 H RDW Coeff of Allison 12.6 Plt Count 239 MPV 10.4 Immature Gran % (Auto) 0.400 Neut % (Auto) 61.7 Lymph % (Auto) 26.1 [place] % (Auto) 8.7 Eos % (Auto) 2.0 Baso % (Auto) 1.1 H Absolute Neuts (auto) 5.2 Absolute Lymphs (auto) 2.21 Nucleated RBC % 0 Sodium 138 Potassium 3.8 Chloride 107 Carbon Dioxide 25.0 Anion Gap 6 BUN 16 Creatinine 1.33 H Estim Creat Clear Calc 71.31 Est GFR (MDRD) Af Amer 72 Est GFR (MDRD) Non-Af 60 BUN/Creatinine Ratio 12.0 Glucose 132 H Calcium 9.2 Total Bilirubin 0.50 AST 31 ALT 71 H Alkaline Phosphatase 96 Total Protein 8.1 Albumin 3.7 Globulin 4.4 H Albumin/Globulin Ratio 0.8 L Urine Color Yellow Urine Clarity Clear Urine pH 5.0 Ur Specific [place] 1.030 Urine Protein 30 H Urine Glucose (UA) Normal Urine Ketones 5 H Urine Occult Blood 50 H Urine Nitrite Negative Urine Bilirubin Negative Urine Urobilinogen Normal Ur Leukocyte Esterase 25 H Urine RBC 0-5 SEEN Urine WBC 0-5 SEEN Ur Squamous Epith Cells 0-5 SEEN Urine Bacteria 0 SEEN Urine Mucus 0 SEEN Discharge Plan Triage Chief Complaint: Abd Pain ED Provider: Juan Pablo Pollard Dx/Rx/DC Orders Prescriptions: No Action NK Primary Care Provider: Care Physician,No Primary Referrals: Care Physician,No Primary [Primary Care Provider] - What to do if you have Problems For any increased pain, shortness of breath, bleeding, nausea or vomiting, chestpain, or any unexpected problems, contact your Primary Care Provider. Call [facility] ([phone]) or report to the closest Emergency Room. Call 911 if necessary. 05/05/23 0026 <Electronically signed by Juan Pablo Pollard MD> Cosigner Signature (if applicable): CC: No Primary Care Physician ~ Signed [facility] Work Phone: Hospital Discharge instructions 05-04-2023 Note Date & Type Note Facility 05-04-2023 Hospital Discharg e instructions Additional Instructions Plenty of fluids and rest. Toradol for pain and Tylenol. Flomax to try to help the stone pass. Follow-up with the urologist, Dr. Brandon Stone if not improving. Return if intractable pain, fever or intractable vomiting. You have a 4 to 5 mm stone down by your bladder this should pass in the next 48 hours or so. [facility] Work Phone: Evaluation note Note Date & Type Note Facility Evaluation note No assessment information availa ble [facility] Work Phone: Hospital Discharge instructions Note Date & Type Note Facility Hospital Discharge instructions Additional Instructions With your flulike symptoms I suspect you have a viral syndrome. Take [id number] cough medication as needed. If your shortness of breath worsens please return to the ER. [facility] Work Phone: Chief Complaint and Reason for Visit Chief Complaint LEFT BACK,FLANK AND ABD PAIN Chief Complaint LEFT BACK,FLANK AND ABD PAIN sob, cold Advance Directives No Advanced Directives Records Found Advance Directive Response Recorded Date/ Time Living Will No May 04 9:55pm Power of Crop And Soil Technician No May 04, 2023 9:55pm Advance Directive Response Recorded Date/ Time Living Will No August 03 6:16pm Power of Crop And Soil Technician No August 03, 2023 6:16pm Summary Purpose Family History No Family History Records Found Additional Source Comments Care Teams (unrecognized sec tion and content) Team Status: Active Member Role Status Dates No Primary Care Physician Family Provider Active No Primary Care Physician Primary Care Provider Active Team Status: Inactive Member Role Status Dates No Primary Care Physician Primary Care Provider Active Dr. Juan Pablo Pollard MD Emergency Provider Active Team Status: Inactive Member Role Status Dates No Primary Care Physician Primary Care Provider Active Dr. Marlo Altamirano , Emergency Provider Active Team Status: Inactive Member Role Status Dates No Primary Care Physician Primary Care Provider Active Dr. Juan Pablo Pollard MD Attending Provider, Emergency Pro vider Active Goals (unrecognized section and content) Goals may be documented in a n alternate sectionGoals may be documented in an alternate section (unrecognized sect ion and content) No Status Records Found INFORMATION SOURCE (unrecogn ized section and content) DATE CREATED AUTHOR 02/16/2024 [facility] FOR RECORDS PERTAINING TO PATIENTS WHO ARE OR HAVE BEEN ENROLLED IN A CHEMICAL DEPENDENCY/SUBSTANCEABUSE PROGRAM, SOME INFORMATION MAY BE OMITTED. This clinical summary was aggregated from multiple sources. Caution should be exercised in using it in the provision of clinical care. This summary normalizes information from multiple sources, and as a consequence, information in this document may materially change the coding, format and clinical context of patient data. In addition, data may be omitted in some cases. CLINICAL DECISIONS SHOULD BE BASED ON THE PRIMARY CLINICAL RECORDS. [employer] provides no warranty or guarantee of the accuracy or completeness of information in this document.
[2025-05-29 00:22] LABS: Troponin T High Sens 2 HR < 6 ng/L (<=22)
[2025-05-29 00:41] VITALS: BP 155/92; PULSE 55; RESP 18; TEMP 36.7; O2SAT 99
== END 2025-05-29 00:42 | disposition home or self-care (01) ==
PROVIDERS: Emergency Provider Emergency Medicine; Visit Provider Emergency Medicine
DX: R07.9 Chest pain, unspecified (principal); M54.6 Pain in thoracic spine
CPT/HCPCS: 71046; 80048; 84484; 85025; 93005; 96374; 99284; A4216